=== PATIENT | female | born 1940 | race Caucasian/White ===

== ENCOUNTER → 2016-11-24 | Outpatient (REF) | payer MEDICARE | LOC: M LAB REF 08:54 | PROVIDERS: ATTEND Physician Assistant | DX: N39.0 Urinary tract infection, site not specified (principal) ==

== ENCOUNTER → 2018-05-14 | Outpatient (CLI) | payer MEDICARE | LOC: M ADAMS 11:46 | DX: M51.85 Other intervertebral disc disorders, thoracolumbar region (principal); M51.86 Other intervertebral disc disorders, lumbar region; M51.87 Other intervertebral disc disorders, lumbosacral region; M25.78 Osteophyte, vertebrae; G89.29 Other chronic pain; M54.5 Low back pain | CPT/HCPCS: 72114 ==

== ENCOUNTER 2018-05-18 18:19 | Inpatient (IN) | payer MEDICARE ==
[2018-05-17] MEDS: VERAPAMIL 120 MG SR TAB PO (23:00)
[2018-05-18] MEDS: NS 1,000 ML IV ×2 (18:45→18:50)
[2018-05-18] MEDS: CIPROFLOXACIN 400 MG in APPROPRIATE DILUENT 1 EA IV (18:45)
[2018-05-18] MEDS ORDERED: MORPHINE 2 MG/ML 1ML SYRINGE (J2270) IV (19:00)
[2018-05-18] MEDS: ACETAMINOPHEN TAB 650MG DOSE (2X325MG) PO (19:43)
[2018-05-18 20:44] LABS: LACTIC ACID SEPSIS PROTOCOL 2.1 MMOL/L (0.4-2.0)
[2018-05-18] MEDS: metroNIDAZOLE 500 MG in APPROPRIATE DILUENT 1 EA IV (21:00)
[2018-05-19] MEDS: NS 1,000 ML IV ×2 (01:21→13:15)
[2018-05-19] MEDS: LEVOTHYROXINE 75MCG TABLET (0.075MG) PO (05:59)
[2018-05-19] MEDS: metroNIDAZOLE 500 MG in APPROPRIATE DILUENT 1 EA IV ×3 (05:59→21:01)
[2018-05-19 07:06] LABS: HEMATOCRIT 30.6 % (36.0-47.0); MEAN CORPUSCULAR VOLUME 91.3 fl (80.0-96.0); PLATELET COUNT, AUTOMATED 378 10^3/uL (150-450); RED BLOOD COUNT 3.35 10^6/uL (4.00-5.40); RED CELL DISTRIBUTION WIDTH 14.6 % (11.5-14.5); WHITE BLOOD COUNT 18.9 10^3/uL (4.0-10.0)
[2018-05-19 07:12] LABS: HEMOGLOBIN 10.4 g/dl (12.0-15.5)
[2018-05-19] MEDS: IPRATROPIUM 0.5MG/ALBUTEROL 2.5MG INH SOL UD 3ML (DUONEB)(J7620) NEB ×2 (07:20→22:54)
[2018-05-19 07:40] LABS: ALBUMIN 2.7 GM/DL (3.2-5.2); ALKALINE PHOSPHATASE 47 U/L (45-117); ALT/SGPT 14 U/L (12-78); ANION GAP 9 MEQ/L (8-16); AST/SGOT 9 U/L (7-37); BILIRUBIN,TOTAL 0.5 MG/DL (0.2-1.0); BLOOD UREA NITROGEN 14 MG/DL (7-18); CALCIUM LEVEL 8.3 MG/DL (8.8-10.2); CARBON DIOXIDE LEVEL 24 MEQ/L (21-32); CHLORIDE LEVEL 106 MEQ/L (98-107); CREATININE FOR GFR 0.67 MG/DL (0.55-1.30); GLOMERULAR FILTRATION RATE > 60.0 (>39); GLUCOSE, FASTING 99 MG/DL (70-100); POTASSIUM SERUM 3.8 MEQ/L (3.5-5.1); SODIUM LEVEL 139 MEQ/L (136-145); TOTAL PROTEIN 5.7 GM/DL (6.4-8.2)
[2018-05-19] MEDS: PERCOCET 5MG/325MG TAB PO ×3 (08:17→18:53)
[2018-05-19] MEDS: LISINOPRIL 5 MG TAB PO (08:19)
[2018-05-19] MEDS: PANTOPRAZOLE 40MG TAB (PROTONIX) PO (08:20)
[2018-05-19] MEDS: CIPROFLOXACIN 400 MG in APPROPRIATE DILUENT 1 EA IV ×2 (08:24→21:01)
[2018-05-19] MEDS: DOCUSATE SODIUM 100 MG CAP PO ×2 (08:25→20:20)
[2018-05-19] MEDS ORDERED: hydroCHLOROthiazide 25 MG TAB PO (09:00)
[2018-05-19] MEDS ORDERED: GABAPENTIN 300 MG CAP PO (09:00)
[2018-05-19] MEDS: VERAPAMIL 120 MG SR TAB PO ×2 (11:17→21:02)
[2018-05-19] MEDS: CYANOCOBALAMIN 500 MCG TAB PO (11:18)
[2018-05-19] MEDS: VITAMIN D 1,000 INTERNATIONAL UNITS TABLET PO (11:18)
[2018-05-19] MEDS: VITAMIN E 400 INTERNATIONAL UNITS CAP PO (11:18)
[2018-05-19] MEDS: MULTIVITAMINS/MINERALS THERAP 1 TAB PO (11:18)
[2018-05-19] MEDS: CALCIUM/VITAMIN D 500 MG TAB PO (11:18)
[2018-05-19] MEDS: FLUTICASONE PROP 0.05% NASAL SPRAY 16 GM (FLONASE) NARES (11:19)
[2018-05-19 17:38] LABS: HEMOGLOBIN 10.2 g/dl (12.0-15.5)
[2018-05-19] MEDS: GABAPENTIN 300 MG CAP PO (21:03)
[2018-05-19] MEDS: MONTELUKAST 10 MG TAB PO (21:03)
[2018-05-19] MEDS: PRAVASTATIN 20 MG TAB PO (21:03)
[2018-05-20] MEDS: NS 1,000 ML IV ×3 (02:30→22:39)
[2018-05-20] MEDS: metroNIDAZOLE 500 MG in APPROPRIATE DILUENT 1 EA IV ×3 (05:53→21:45)
[2018-05-20] MEDS: LEVOTHYROXINE 75MCG TABLET (0.075MG) PO (05:53)
[2018-05-20 07:11] LABS: HEMATOCRIT 31.6 % (36.0-47.0); HEMOGLOBIN 10.2 g/dl (12.0-15.5); MEAN CORPUSCULAR HEMOGLOBIN 30.7 pg (27.0-33.0); MEAN CORPUSCULAR HGB CONC 32.3 g/dl (32.0-36.5); MEAN CORPUSCULAR VOLUME 95.2 fl (80.0-96.0); PLATELET COUNT, AUTOMATED 392 10^3/uL (150-450); RED BLOOD COUNT 3.32 10^6/uL (4.00-5.40); RED CELL DISTRIBUTION WIDTH 14.7 % (11.5-14.5); WHITE BLOOD COUNT 15.6 10^3/uL (4.0-10.0)
[2018-05-20 07:38] LABS: ALBUMIN 2.6 GM/DL (3.2-5.2); ALBUMIN/GLOBULIN RATIO 0.87 (1.00-1.93); ALKALINE PHOSPHATASE 51 U/L (45-117); ALT/SGPT 14 U/L (12-78); ANION GAP 8 MEQ/L (8-16); AST/SGOT 10 U/L (7-37); BILIRUBIN,TOTAL 0.4 MG/DL (0.2-1.0); BLOOD UREA NITROGEN 7 MG/DL (7-18); CALCIUM LEVEL 8.2 MG/DL (8.8-10.2); CARBON DIOXIDE LEVEL 24 MEQ/L (21-32); CHLORIDE LEVEL 112 MEQ/L (98-107); CREATININE FOR GFR 0.64 MG/DL (0.55-1.30); GLOMERULAR FILTRATION RATE > 60.0 (>39); GLUCOSE, FASTING 85 MG/DL (70-100); POTASSIUM SERUM 3.9 MEQ/L (3.5-5.1); SODIUM LEVEL 144 MEQ/L (136-145); TOTAL PROTEIN 5.6 GM/DL (6.4-8.2)
[2018-05-20] MEDS: IPRATROPIUM 0.5MG/ALBUTEROL 2.5MG INH SOL UD 3ML (DUONEB)(J7620) NEB (08:24)
[2018-05-20] MEDS: CIPROFLOXACIN 400 MG in APPROPRIATE DILUENT 1 EA IV (08:28)
[2018-05-20] MEDS: PANTOPRAZOLE 40MG TAB (PROTONIX) PO (08:29)
[2018-05-20] MEDS: VERAPAMIL 120 MG SR TAB PO ×2 (08:29→21:46)
[2018-05-20] MEDS: LISINOPRIL 10 MG TAB PO (08:30)
[2018-05-20] MEDS: CALCIUM/VITAMIN D 500 MG TAB PO (08:33)
[2018-05-20] MEDS: DOCUSATE SODIUM 100 MG CAP PO ×2 (08:33→21:46)
[2018-05-20] MEDS: CYANOCOBALAMIN 500 MCG TAB PO (08:34)
[2018-05-20] MEDS: MULTIVITAMINS/MINERALS THERAP 1 TAB PO (08:34)
[2018-05-20] MEDS: FLUTICASONE PROP 0.05% NASAL SPRAY 16 GM (FLONASE) NARES (08:34)
[2018-05-20] MEDS: VITAMIN D 1,000 INTERNATIONAL UNITS TABLET PO (08:34)
[2018-05-20] MEDS: VITAMIN E 400 INTERNATIONAL UNITS CAP PO (08:34)
[2018-05-20] MEDS: LACTOBACILLUS ACIDOPHILUS CAP (BACID) PO ×3 (09:58→21:46)
[2018-05-20] MEDS: CEFEPIME HCL 1 GM in D5W MINI-BAG PLUS 50 ML IV ×2 (11:21→21:45)
[2018-05-20] MEDS: PINK BISMUTH SUSP 524MG/30ML ORAL SYRINGE PO ×3 (12:21→21:45)
[2018-05-20] MEDS: MONTELUKAST 10 MG TAB PO (21:46)
[2018-05-20] MEDS: GABAPENTIN 300 MG CAP PO (21:46)
[2018-05-20] MEDS: PRAVASTATIN 20 MG TAB PO (21:47)
[2018-05-21] MEDS: metroNIDAZOLE 500 MG in APPROPRIATE DILUENT 1 EA IV ×3 (06:00→21:19)
[2018-05-21] MEDS: LEVOTHYROXINE 75MCG TABLET (0.075MG) PO (06:00)
[2018-05-21 06:57] LABS: HEMATOCRIT 31.7 % (36.0-47.0); HEMOGLOBIN 10.5 g/dl (12.0-15.5); MEAN CORPUSCULAR HEMOGLOBIN 30.3 pg (27.0-33.0); MEAN CORPUSCULAR HGB CONC 33.1 g/dl (32.0-36.5); MEAN CORPUSCULAR VOLUME 91.6 fl (80.0-96.0); PLATELET COUNT, AUTOMATED 431 10^3/uL (150-450); RED BLOOD COUNT 3.46 10^6/uL (4.00-5.40); RED CELL DISTRIBUTION WIDTH 14.7 % (11.5-14.5)
[2018-05-21 07:26] LABS: ALBUMIN 2.6 GM/DL (3.2-5.2); ALBUMIN/GLOBULIN RATIO 0.79 (1.00-1.93); ALKALINE PHOSPHATASE 47 U/L (45-117); ALT/SGPT 14 U/L (12-78); ANION GAP 10 MEQ/L (8-16); AST/SGOT 11 U/L (7-37); BILIRUBIN,TOTAL 0.4 MG/DL (0.2-1.0); BLOOD UREA NITROGEN 5 MG/DL (7-18); CALCIUM LEVEL 8.2 MG/DL (8.8-10.2); CARBON DIOXIDE LEVEL 24 MEQ/L (21-32); CHLORIDE LEVEL 110 MEQ/L (98-107); CREATININE FOR GFR 0.71 MG/DL (0.55-1.30); GLOMERULAR FILTRATION RATE > 60.0 (>39); GLUCOSE, FASTING 93 MG/DL (70-100); POTASSIUM SERUM 3.3 MEQ/L (3.5-5.1); SODIUM LEVEL 144 MEQ/L (136-145); TOTAL PROTEIN 5.9 GM/DL (6.4-8.2)
[2018-05-21] MEDS ORDERED: ISOVUE-370 76% 100ML VIAL (Q9967) As Ordered (08:34)
[2018-05-21] MEDS: VERAPAMIL 120 MG SR TAB PO ×2 (08:44→21:18)
[2018-05-21] MEDS: POTASSIUM CHLORIDE 10 MEQ SR TABLET PO ×2 (08:45→09:00)
[2018-05-21] MEDS: VITAMIN D 1,000 INTERNATIONAL UNITS TABLET PO (08:45)
[2018-05-21] MEDS: VITAMIN E 400 INTERNATIONAL UNITS CAP PO (08:45)
[2018-05-21] MEDS: PINK BISMUTH SUSP 524MG/30ML ORAL SYRINGE PO ×4 (08:45→21:18)
[2018-05-21] MEDS: LACTOBACILLUS ACIDOPHILUS CAP (BACID) PO ×3 (08:45→21:17)
[2018-05-21] MEDS: CALCIUM/VITAMIN D 500 MG TAB PO (08:46)
[2018-05-21] MEDS: CYANOCOBALAMIN 500 MCG TAB PO (08:46)
[2018-05-21] MEDS: PANTOPRAZOLE 40MG TAB (PROTONIX) PO (08:46)
[2018-05-21] MEDS: MULTIVITAMINS/MINERALS THERAP 1 TAB PO (08:46)
[2018-05-21] MEDS: FLUTICASONE PROP 0.05% NASAL SPRAY 16 GM (FLONASE) NARES (08:46)
[2018-05-21] MEDS: LISINOPRIL 10 MG TAB PO (08:46)
[2018-05-21] MEDS: DOCUSATE SODIUM 100 MG CAP PO ×2 (08:47→21:19)
[2018-05-21] MEDS: GASTROGRAFIN SOLUTION 30ML PO ×2 (09:15→09:45)
[2018-05-21] MEDS: CEFEPIME HCL 1 GM in D5W MINI-BAG PLUS 50 ML IV ×2 (09:26→22:33)
[2018-05-21] MEDS: NS 1,000 ML IV ×2 (12:57→22:33)
[2018-05-21] MEDS: GABAPENTIN 300 MG CAP PO (21:18)
[2018-05-21] MEDS: MONTELUKAST 10 MG TAB PO (21:19)
[2018-05-21] MEDS: PRAVASTATIN 20 MG TAB PO (21:19)
[2018-05-22] MEDS: LEVOTHYROXINE 75MCG TABLET (0.075MG) PO (05:31)
[2018-05-22] MEDS: metroNIDAZOLE 500 MG in APPROPRIATE DILUENT 1 EA IV ×3 (05:31→21:13)
[2018-05-22 07:12] LABS: HEMATOCRIT 33.9 % (36.0-47.0); HEMOGLOBIN 11.2 g/dl (12.0-15.5); MEAN CORPUSCULAR HEMOGLOBIN 30.6 pg (27.0-33.0); MEAN CORPUSCULAR VOLUME 92.6 fl (80.0-96.0); PLATELET COUNT, AUTOMATED 478 10^3/uL (150-450); RED BLOOD COUNT 3.66 10^6/uL (4.00-5.40); RED CELL DISTRIBUTION WIDTH 14.6 % (11.5-14.5); WHITE BLOOD COUNT 8.6 10^3/uL (4.0-10.0)
[2018-05-22 07:45] LABS: ALBUMIN 2.9 GM/DL (3.2-5.2); ALBUMIN/GLOBULIN RATIO 0.97 (1.00-1.93); ALKALINE PHOSPHATASE 50 U/L (45-117); ALT/SGPT 18 U/L (12-78); ANION GAP 9 MEQ/L (8-16); AST/SGOT 19 U/L (7-37); BILIRUBIN,TOTAL 0.2 MG/DL (0.2-1.0); BLOOD UREA NITROGEN 8 MG/DL (7-18); CALCIUM LEVEL 8.7 MG/DL (8.8-10.2); CARBON DIOXIDE LEVEL 23 MEQ/L (21-32); CHLORIDE LEVEL 110 MEQ/L (98-107); CREATININE FOR GFR 0.62 MG/DL (0.55-1.30); GLOMERULAR FILTRATION RATE > 60.0 (>39); GLUCOSE, FASTING 98 MG/DL (70-100); MAGNESIUM LEVEL 1.4 MG/DL (1.8-2.4); POTASSIUM SERUM 4.2 MEQ/L (3.5-5.1); SODIUM LEVEL 142 MEQ/L (136-145); TOTAL PROTEIN 5.9 GM/DL (6.4-8.2)
[2018-05-22] MEDS: DOCUSATE SODIUM 100 MG CAP PO ×2 (08:21→21:00)
[2018-05-22] MEDS: MULTIVITAMINS/MINERALS THERAP 1 TAB PO (08:24)
[2018-05-22] MEDS: VERAPAMIL 120 MG SR TAB PO ×2 (08:24→21:14)
[2018-05-22] MEDS: PINK BISMUTH SUSP 524MG/30ML ORAL SYRINGE PO ×4 (08:24→21:12)
[2018-05-22] MEDS: LACTOBACILLUS ACIDOPHILUS CAP (BACID) PO ×3 (08:24→21:14)
[2018-05-22] MEDS: CYANOCOBALAMIN 500 MCG TAB PO (08:24)
[2018-05-22] MEDS: VITAMIN E 400 INTERNATIONAL UNITS CAP PO (08:24)
[2018-05-22] MEDS: CALCIUM/VITAMIN D 500 MG TAB PO (08:24)
[2018-05-22] MEDS: VITAMIN D 1,000 INTERNATIONAL UNITS TABLET PO (08:24)
[2018-05-22] MEDS: PANTOPRAZOLE 40MG TAB (PROTONIX) PO (08:24)
[2018-05-22] MEDS: FLUTICASONE PROP 0.05% NASAL SPRAY 16 GM (FLONASE) NARES (08:25)
[2018-05-22] MEDS: LISINOPRIL 10 MG TAB PO (08:25)
[2018-05-22] MEDS: IPRATROPIUM 0.5MG/ALBUTEROL 2.5MG INH SOL UD 3ML (DUONEB)(J7620) NEB (08:50)
[2018-05-22] MEDS: MAG SULF 1GM/100ML (MAG RUN) 1 GM in APPROPRIATE DILUENT 1 EA IV ×2 (08:54→10:54)
[2018-05-22] MEDS: CEFEPIME HCL 1 GM in D5W MINI-BAG PLUS 50 ML IV ×2 (10:17→22:43)
[2018-05-22] MEDS: LOPERAMIDE 2 MG CAP PO (10:55)
[2018-05-22] MEDS: MONTELUKAST 10 MG TAB PO (21:14)
[2018-05-22] MEDS: GABAPENTIN 300 MG CAP PO (21:14)
[2018-05-22] MEDS: PRAVASTATIN 20 MG TAB PO (21:14)
[2018-05-23 00:11] LABS: CHLORIDE FECAL 68 mmol/L (.); OSMOLARITY STOOL 564 mOsmol/kg (Not Estab.); POTASSIUM FECAL 33 mmol/L (.)
[2018-05-23 00:11] LABS: SODIUM FECAL 66 mmol/L (.)
[2018-05-23] MEDS: metroNIDAZOLE 500 MG in APPROPRIATE DILUENT 1 EA IV (05:28)
[2018-05-23] MEDS: LEVOTHYROXINE 75MCG TABLET (0.075MG) PO (05:28)
[2018-05-23 06:44] LABS: HEMATOCRIT 30.7 % (36.0-47.0); HEMOGLOBIN 10.3 g/dl (12.0-15.5); MEAN CORPUSCULAR HEMOGLOBIN 30.3 pg (27.0-33.0); MEAN CORPUSCULAR HGB CONC 33.6 g/dl (32.0-36.5); MEAN CORPUSCULAR VOLUME 90.3 fl (80.0-96.0); PLATELET COUNT, AUTOMATED 425 10^3/uL (150-450); RED CELL DISTRIBUTION WIDTH 14.6 % (11.5-14.5); WHITE BLOOD COUNT 7.4 10^3/uL (4.0-10.0)
[2018-05-23 07:09] LABS: ALBUMIN 2.6 GM/DL (3.2-5.2); ALBUMIN/GLOBULIN RATIO 0.84 (1.00-1.93); ALKALINE PHOSPHATASE 42 U/L (45-117); ALT/SGPT 18 U/L (12-78); ANION GAP 8 MEQ/L (8-16); AST/SGOT 21 U/L (7-37); BILIRUBIN,TOTAL 0.3 MG/DL (0.2-1.0); BLOOD UREA NITROGEN 8 MG/DL (7-18); CALCIUM LEVEL 8.5 MG/DL (8.8-10.2); CARBON DIOXIDE LEVEL 27 MEQ/L (21-32); CHLORIDE LEVEL 110 MEQ/L (98-107); CREATININE FOR GFR 0.68 MG/DL (0.55-1.30); GLOMERULAR FILTRATION RATE > 60.0 (>39); GLUCOSE, FASTING 97 MG/DL (70-100); POTASSIUM SERUM 3.6 MEQ/L (3.5-5.1); SODIUM LEVEL 145 MEQ/L (136-145); TOTAL PROTEIN 5.7 GM/DL (6.4-8.2)
[2018-05-23] MEDS: DOCUSATE SODIUM 100 MG CAP PO (09:00)
[2018-05-23] MEDS: CALCIUM/VITAMIN D 500 MG TAB PO (09:01)
[2018-05-23] MEDS: CYANOCOBALAMIN 500 MCG TAB PO (09:01)
[2018-05-23] MEDS: VITAMIN E 400 INTERNATIONAL UNITS CAP PO (09:01)
[2018-05-23] MEDS: MULTIVITAMINS/MINERALS THERAP 1 TAB PO (09:01)
[2018-05-23] MEDS: PINK BISMUTH SUSP 524MG/30ML ORAL SYRINGE PO (09:01)
[2018-05-23] MEDS: VITAMIN D 1,000 INTERNATIONAL UNITS TABLET PO (09:02)
[2018-05-23] MEDS: LISINOPRIL 10 MG TAB PO (09:02)
[2018-05-23] MEDS: PANTOPRAZOLE 40MG TAB (PROTONIX) PO (09:02)
[2018-05-23] MEDS: LACTOBACILLUS ACIDOPHILUS CAP (BACID) PO (09:02)
[2018-05-23] MEDS: POTASSIUM CHLORIDE 10 MEQ SR TABLET PO (09:02)
[2018-05-23] MEDS: CEFEPIME HCL 1 GM in D5W MINI-BAG PLUS 50 ML IV (09:03)
[2018-05-23] MEDS: FLUTICASONE PROP 0.05% NASAL SPRAY 16 GM (FLONASE) NARES (09:03)
[2018-05-23] MEDS: VERAPAMIL 120 MG SR TAB PO (09:03)
== END 2018-05-23 10:52 | disposition home or self-care (01) | DRG 392 ==
LOC: M ED 18:19 → M PED 21:03
PROVIDERS: Internal Medicine Nephrology
DX: K52.9 Noninfective gastroenteritis and colitis, unspecified (principal); E87.2 Acidosis; E78.5 Hyperlipidemia, unspecified; I10 Essential (primary) hypertension; J45.909 Unspecified asthma, uncomplicated; D86.9 Sarcoidosis, unspecified; E03.9 Hypothyroidism, unspecified; Z79.82 Long term (current) use of aspirin; Z79.899 Other long term (current) drug therapy

== ENCOUNTER → 2018-05-18 | Outpatient (CLI) | payer MEDICARE ==
[~2018-05-18] MED LIST: GASTROGRAFIN SOLUTION 30ML (Q9963) As Ordered; ISOVUE-370 76% 100ML VIAL (Q9967) As Ordered
[2018-05-18 16:16] LABS: BASO % 0.2 % (0.0-1.0); HEMOGLOBIN 12.5 g/dl (12.0-15.5); IMMATURE GRANULOCYTE % 0.7 % (0-3.0); LYMPH # 0.8 10^3/uL (1.5-4.5); LYMPH % 3.8 % (24.0-44.0); MEAN CORPUSCULAR HEMOGLOBIN 30.9 pg (27.0-33.0); MEAN CORPUSCULAR HGB CONC 32.9 g/dl (32.0-36.5); MEAN CORPUSCULAR VOLUME 93.8 fl (80.0-96.0); MONO # 1.3 10^3/uL (0.0-0.8); MONO % 6.8 % (0.0-5.0); NEUTROPHILS # 17.5 10^3/uL (1.8-7.7); NEUTROPHILS % 88.5 % (36.0-66.0); PLATELET COUNT, AUTOMATED 471 10^3/uL (150-450); RED BLOOD COUNT 4.05 10^6/uL (4.00-5.40); RED CELL DISTRIBUTION WIDTH 14.5 % (11.5-14.5); WHITE BLOOD COUNT 19.8 10^3/uL (4.0-10.0)
[2018-05-18 16:38] LABS: ALBUMIN 3.5 GM/DL (3.2-5.2); ALBUMIN/GLOBULIN RATIO 1.03 (1.00-1.93); ALKALINE PHOSPHATASE 58 U/L (45-117); ALT/SGPT 21 U/L (12-78); ANION GAP 8 MEQ/L (8-16); AST/SGOT 16 U/L (7-37); BILIRUBIN,TOTAL 0.6 MG/DL (0.2-1.0); BLOOD UREA NITROGEN 26 MG/DL (7-18); CALCIUM LEVEL 9.5 MG/DL (8.8-10.2); CARBON DIOXIDE LEVEL 27 MEQ/L (21-32); CHLORIDE LEVEL 104 MEQ/L (98-107); CREATININE FOR GFR 0.91 MG/DL (0.55-1.30); GLOMERULAR FILTRATION RATE > 60.0 (>39); GLUCOSE, FASTING 96 MG/DL (70-100); LIPASE 156 U/L (73-393); POTASSIUM SERUM 4.7 MEQ/L (3.5-5.1); SODIUM LEVEL 139 MEQ/L (136-145); TOTAL PROTEIN 6.9 GM/DL (6.4-8.2)
== END ==
LOC: M RAD 15:34
DX: K52.9 Noninfective gastroenteritis and colitis, unspecified (principal); K57.30 Diverticulosis of large intestine without perforation or abscess without bleeding; M85.88 Other specified disorders of bone density and structure, other site; R10.813 Right lower quadrant abdominal tenderness

== ENCOUNTER → 2018-06-02 | Outpatient (REF) | payer MEDICARE ==
[2018-06-02 19:58] LABS: ALBUMIN/GLOBULIN RATIO 1.14 (1.00-1.93); ALKALINE PHOSPHATASE 52 U/L (45-117); ALT/SGPT 32 U/L (12-78); ANION GAP 6 MEQ/L (8-16); AST/SGOT 26 U/L (7-37); BILIRUBIN,TOTAL 0.3 MG/DL (0.2-1.0); BLOOD UREA NITROGEN 20 MG/DL (7-18); CALCIUM LEVEL 10.1 MG/DL (8.8-10.2); CARBON DIOXIDE LEVEL 30 MEQ/L (21-32); CHLORIDE LEVEL 99 MEQ/L (98-107); CREATININE FOR GFR 0.83 MG/DL (0.55-1.30); GLOMERULAR FILTRATION RATE > 60.0 (>39); GLUCOSE, FASTING 86 MG/DL (70-100); POTASSIUM SERUM 5.4 MEQ/L (3.5-5.1); SODIUM LEVEL 135 MEQ/L (136-145); TOTAL PROTEIN 7.5 GM/DL (6.4-8.2)
[2018-06-02 20:04] LABS: HEMATOCRIT 37.7 % (36.0-47.0); HEMOGLOBIN 12.1 g/dl (12.0-15.5); MEAN CORPUSCULAR HEMOGLOBIN 29.8 pg (27.0-33.0); MEAN CORPUSCULAR HGB CONC 32.1 g/dl (32.0-36.5); MEAN CORPUSCULAR VOLUME 92.9 fl (80.0-96.0); PLATELET COUNT, AUTOMATED 750 10^3/uL (150-450); RED BLOOD COUNT 4.06 10^6/uL (4.00-5.40); RED CELL DISTRIBUTION WIDTH 14.7 % (11.5-14.5); WHITE BLOOD COUNT 9.9 10^3/uL (4.0-10.0)
== END ==
LOC: M SFHCADAM 14:27
DX: D64.9 Anemia, unspecified (principal)
CPT/HCPCS: 80053

== ENCOUNTER → 2018-11-13 | Outpatient (REF) | payer MEDICARE ==
[~2018-11-13] MED LIST changes: +ACID1CAP PO; +ASPI1TAB15 PO; +AUGM875T28 PO; +CALC600T7 PO; +DEXI30CA2 PO; +DICL75TA PO; +DOCU100C16 PO; +FLAG500T PO; +FLAX10005 PO; +FLUT44IN INH; +FLUTISP NARES; +GABA-843 PO; -GASTROGRAFIN SOLUTION 30ML (Q9963) As Ordered; +GINK40TA3 PO; +GLUC1CAP10 PO; +HYDR25TAB PO; -ISOVUE-370 76% 100ML VIAL (Q9967) As Ordered; +LEVO75TA4 PO; +LISI-542 PO; +LOPE2CA PO; +MELO15TA28 PO; +MIRA3350 PO; +MONT10TA2 PO; +PRAV80TA2 PO; +REST0.05 OU; +VERA24TASA PO; +VITA100018 PO; +VITA2000 PO; +VITA400C67 PO; +VITMTA PO
[2018-11-13 12:51] LABS: HEMATOCRIT 37.9 % (36.0-47.0); HEMOGLOBIN 12.3 g/dl (12.0-15.5); MEAN CORPUSCULAR HEMOGLOBIN 30.4 pg (27.0-33.0); MEAN CORPUSCULAR HGB CONC 32.5 g/dl (32.0-36.5); MEAN CORPUSCULAR VOLUME 93.6 fl (80.0-96.0); PLATELET COUNT, AUTOMATED 600 10^3/uL (150-450); RED BLOOD COUNT 4.05 10^6/uL (4.00-5.40); WHITE BLOOD COUNT 7.6 10^3/uL (4.0-10.0)
[2018-11-13 13:04] LABS: ALBUMIN 3.7 GM/DL (3.2-5.2); BILIRUBIN,TOTAL 0.4 MG/DL (0.2-1.0); CALCIUM LEVEL 10.3 MG/DL (8.8-10.2); CHOLESTEROL RISK RATIO 2.723 (<5); CREATININE FOR GFR 0.97 MG/DL (0.55-1.30); FREE T4 1.29 NG/DL (0.76-1.46); GLOMERULAR FILTRATION RATE 59.3 (>39); POTASSIUM SERUM 5.2 MEQ/L (3.5-5.1); THYROID STIMULATING HORMONE 1.09 uIU/ML (0.358-3.740); TOTAL PROTEIN 6.8 GM/DL (6.4-8.2)
== END ==
LOC: M SFHCADAM 07:55
PROVIDERS: ATTEND Physician Assistant
DX: I10 Essential (primary) hypertension (principal); E78.5 Hyperlipidemia, unspecified; E03.9 Hypothyroidism, unspecified

== ENCOUNTER → 2019-01-26 | Outpatient (REF) | payer MEDICARE ==
[2019-01-26 13:27] LABS: HEMATOCRIT 27.2 % (36.0-47.0); HEMOGLOBIN 8.5 g/dl (12.0-15.5); MEAN CORPUSCULAR HEMOGLOBIN 27.6 pg (27.0-33.0); MEAN CORPUSCULAR HGB CONC 31.3 g/dl (32.0-36.5); MEAN CORPUSCULAR VOLUME 88.3 fl (80.0-96.0); PLATELET COUNT, AUTOMATED 605 10^3/uL (150-450); RED BLOOD COUNT 3.08 10^6/uL (4.00-5.40); WHITE BLOOD COUNT 7.8 10^3/uL (4.0-10.0)
[2019-01-26 13:57] LABS: ALBUMIN 2.9 GM/DL (3.2-5.2); ALT/SGPT 25 U/L (12-78); BILIRUBIN,TOTAL 0.2 MG/DL (0.2-1.0); BLOOD UREA NITROGEN 34 MG/DL (7-18); CALCIUM LEVEL 9.7 MG/DL (8.8-10.2); CARBON DIOXIDE LEVEL 25 MEQ/L (21-32); CHLORIDE LEVEL 108 MEQ/L (98-107); GLOMERULAR FILTRATION RATE > 60.0 (>39); GLUCOSE, FASTING 77 MG/DL (70-100); SODIUM LEVEL 140 MEQ/L (136-145); TOTAL PROTEIN 6.5 GM/DL (6.4-8.2)
== END ==
LOC: M LAB REF 12:20 → M LABDRAW1 12:20
PROVIDERS: ATTEND Physician Assistant
DX: I10 Essential (primary) hypertension (principal); E78.5 Hyperlipidemia, unspecified; E03.9 Hypothyroidism, unspecified

== ENCOUNTER → 2019-02-01 | Outpatient (REF) | payer MEDICARE ==
[2019-02-01 14:48] LABS: BASO # 0.1 10^3/uL (0.0-0.2); BASO % 1.2 % (0.0-1.0); EOS # 0.4 10^3/uL (0.0-0.50); EOS % 4.4 % (0.0-3.0); HEMATOCRIT 27.9 % (36.0-47.0); HEMOGLOBIN 8.9 g/dl (12.0-15.5); LYMPH # 1.3 10^3/uL (1.5-4.5); LYMPH % 14.1 % (24.0-44.0); MEAN CORPUSCULAR HEMOGLOBIN 28.3 pg (27.0-33.0); MEAN CORPUSCULAR HGB CONC 31.9 g/dl (32.0-36.5); MEAN CORPUSCULAR VOLUME 88.6 fl (80.0-96.0); MONO # 1.1 10^3/uL (0.0-0.8); MONO % 12.7 % (0.0-5.0); NEUTROPHILS # 6.1 10^3/uL (1.8-7.7); NEUTROPHILS % 67.3 % (36.0-66.0); PLATELET COUNT, AUTOMATED 506 10^3/uL (150-450); RED BLOOD COUNT 3.15 10^6/uL (4.00-5.40)
[2019-02-01 15:11] LABS: ALBUMIN 3.1 GM/DL (3.2-5.2); ALT/SGPT 17 U/L (12-78); BILIRUBIN,TOTAL 0.3 MG/DL (0.2-1.0); BLOOD UREA NITROGEN 35 MG/DL (7-18); C REACTIVE PROTEIN QUANTITATIV < 0.30 MG/DL (0.00-0.30); CALCIUM LEVEL 9.7 MG/DL (8.8-10.2); CARBON DIOXIDE LEVEL 26 MEQ/L (21-32); CHLORIDE LEVEL 105 MEQ/L (98-107); CREATININE FOR GFR 0.95 MG/DL (0.55-1.30); GLOMERULAR FILTRATION RATE > 60.0 (>39); GLUCOSE, FASTING 74 MG/DL (70-100); POTASSIUM SERUM 5.1 MEQ/L (3.5-5.1); SODIUM LEVEL 137 MEQ/L (136-145); TOTAL PROTEIN 6.6 GM/DL (6.4-8.2)
== END ==
LOC: M LAB REF 14:15
DX: T81.49XA Infection following a procedure, other surgical site, initial encounter (principal); Z79.899 Other long term (current) drug therapy

== ENCOUNTER → 2019-02-03 | Outpatient (REF) | payer MEDICARE ==
[2019-02-03 20:12] LABS: BASO # 0.1 10^3/uL (0.0-0.2); BASO % 1.5 % (0.0-1.0); EOS # 0.6 10^3/uL (0.0-0.50); EOS % 7.1 % (0.0-3.0); HEMOGLOBIN 8.9 g/dl (12.0-15.5); LYMPH # 1.3 10^3/uL (1.5-4.5); LYMPH % 15.9 % (24.0-44.0); MEAN CORPUSCULAR HEMOGLOBIN 27.6 pg (27.0-33.0); MEAN CORPUSCULAR HGB CONC 30.7 g/dl (32.0-36.5); MEAN CORPUSCULAR VOLUME 90.1 fl (80.0-96.0); MONO # 1.3 10^3/uL (0.0-0.8); MONO % 16.1 % (0.0-5.0); NEUTROPHILS # 4.7 10^3/uL (1.8-7.7); PLATELET COUNT, AUTOMATED 486 10^3/uL (150-450); RED BLOOD COUNT 3.22 10^6/uL (4.00-5.40); WHITE BLOOD COUNT 7.9 10^3/uL (4.0-10.0)
[2019-02-03 20:41] LABS: FERRITIN 23 NG/ML (8-252); FREE T4 1.05 NG/DL (0.76-1.46); IRON (FE) 40 UG/DL (50-170); PERCENT SATURATION 9.1 % (13.2-45.0); TOTAL IRON BINDING CAPACITY 439 UG/DL (250-450)
[2019-02-03 20:42] LABS: VITAMIN B12 LEVEL 1406 PG/ML
[2019-02-03 20:43] LABS: FOLATE > 24.0 NG/ML
== END ==
LOC: M SFHCADAM 14:29
PROVIDERS: ATTEND Physician Assistant
DX: D64.9 Anemia, unspecified (principal); D47.3 Essential (hemorrhagic) thrombocythemia

== ENCOUNTER → 2019-02-08 | Outpatient (REF) | payer MEDICARE ==
[2019-02-08 18:03] LABS: BASO # 0.1 10^3/uL (0.0-0.2); BASO % 1.1 % (0.0-1.0); EOS # 0.5 10^3/uL (0.0-0.50); EOS % 5.8 % (0.0-3.0); HEMATOCRIT 27.9 % (36.0-47.0); HEMOGLOBIN 8.5 g/dl (12.0-15.5); LYMPH % 10.5 % (24.0-44.0); MEAN CORPUSCULAR HGB CONC 30.5 g/dl (32.0-36.5); MEAN CORPUSCULAR VOLUME 88.6 fl (80.0-96.0); MONO % 10.9 % (0.0-5.0); NEUTROPHILS # 6.5 10^3/uL (1.8-7.7); NEUTROPHILS % 71.3 % (36.0-66.0); PLATELET COUNT, AUTOMATED 467 10^3/uL (150-450); RED BLOOD COUNT 3.15 10^6/uL (4.00-5.40); WHITE BLOOD COUNT 9.1 10^3/uL (4.0-10.0)
[2019-02-08 18:04] LABS: ALT/SGPT 16 U/L (12-78); BILIRUBIN,TOTAL 0.3 MG/DL (0.2-1.0); BLOOD UREA NITROGEN 34 MG/DL (7-18); C REACTIVE PROTEIN QUANTITATIV < 0.30 MG/DL (0.00-0.30); CALCIUM LEVEL 9.9 MG/DL (8.8-10.2); CARBON DIOXIDE LEVEL 27 MEQ/L (21-32); CHLORIDE LEVEL 107 MEQ/L (98-107); CREATININE FOR GFR 1.17 MG/DL (0.55-1.30); GLOMERULAR FILTRATION RATE 47.7 (>39); GLUCOSE, FASTING 88 MG/DL (70-100); POTASSIUM SERUM 5.2 MEQ/L (3.5-5.1); SODIUM LEVEL 138 MEQ/L (136-145); TOTAL PROTEIN 6.6 GM/DL (6.4-8.2)
== END ==
LOC: M SHH 16:41
PROVIDERS: ATTEND Orthopaedic Surgery Orthopaedic Trauma
DX: T81.49XA Infection following a procedure, other surgical site, initial encounter (principal); Y83.9 Surgical procedure, unspecified as the cause of abnormal reaction of the patient, or of later complication, without mention of misadventure at the time of the procedure

== ENCOUNTER → 2019-02-16 | Outpatient (REF) | payer MEDICARE ==
[2019-02-16 14:22] LABS: BASO # 0.1 10^3/uL (0.0-0.2); BASO % 1.1 % (0.0-1.0); EOS # 0.3 10^3/uL (0.0-0.5); EOS % 4.5 % (0.0-3.0); HEMATOCRIT 29.4 % (36.0-47.0); HEMOGLOBIN 9.2 g/dl (12.0-15.5); LYMPH # 1.3 10^3/uL (1.5-5.0); LYMPH % 18.8 % (24.0-44.0); MEAN CORPUSCULAR HEMOGLOBIN 27.1 pg (27.0-33.0); MEAN CORPUSCULAR HGB CONC 31.3 g/dl (32.0-36.5); MEAN CORPUSCULAR VOLUME 86.7 fl (80.0-96.0); MONO # 1.1 10^3/uL (0.0-0.8); MONO % 14.9 % (0.0-5.0); NEUTROPHILS # 4.2 10^3/uL (1.5-8.5); NEUTROPHILS % 60.3 % (36.0-66.0); PLATELET COUNT, AUTOMATED 545 10^3/uL (150-450); RED BLOOD COUNT 3.39 10^6/uL (4.00-5.40)
[2019-02-16 14:53] LABS: ALBUMIN 3.2 GM/DL (3.2-5.2); BILIRUBIN,TOTAL 0.3 MG/DL (0.2-1.0); C REACTIVE PROTEIN QUANTITATIV 0.76 MG/DL (0.00-0.30); CALCIUM LEVEL 10.2 MG/DL (8.8-10.2); CREATININE FOR GFR 1.41 MG/DL (0.55-1.30); GLOMERULAR FILTRATION RATE 38.5 (>39); POTASSIUM SERUM 5.1 MEQ/L (3.5-5.1); TOTAL PROTEIN 7.1 GM/DL (6.4-8.2)
== END ==
LOC: M SHH 13:22
PROVIDERS: ATTEND Orthopaedic Surgery Orthopaedic Trauma
DX: T81.49XA Infection following a procedure, other surgical site, initial encounter (principal); Y83.8 Other surgical procedures as the cause of abnormal reaction of the patient, or of later complication, without mention of misadventure at the time of the procedure

== ENCOUNTER → 2019-02-18 | Outpatient (REF) | payer MEDICARE ==
[2019-02-18 13:39] LABS: C REACTIVE PROTEIN QUANTITATIV 0.57 MG/DL (0.00-0.30); CALCIUM LEVEL 9.9 MG/DL (8.8-10.2); CREATININE FOR GFR 1.21 MG/DL (0.55-1.30); GLOMERULAR FILTRATION RATE 45.9 (>39)
== END ==
LOC: M LABDRWAD 12:24
PROVIDERS: ATTEND Internal Medicine Infectious Disease
DX: T81.49XA Infection following a procedure, other surgical site, initial encounter (principal); A49.8 Other bacterial infections of unspecified site; Y83.8 Other surgical procedures as the cause of abnormal reaction of the patient, or of later complication, without mention of misadventure at the time of the procedure

== ENCOUNTER → 2019-04-05 | Outpatient (REF) | payer MEDICARE ==
[2019-04-05 13:35] LABS: HEMATOCRIT 37.6 % (36.0-47.0); HEMOGLOBIN 11.7 g/dl (12.0-15.5); MEAN CORPUSCULAR HEMOGLOBIN 27.5 pg (27.0-33.0); MEAN CORPUSCULAR HGB CONC 31.1 g/dl (32.0-36.5); MEAN CORPUSCULAR VOLUME 88.5 fl (80.0-96.0); PLATELET COUNT, AUTOMATED 570 10^3/uL (150-450); RED BLOOD COUNT 4.25 10^6/uL (4.00-5.40); WHITE BLOOD COUNT 5.7 10^3/uL (4.0-10.0)
[2019-04-05 13:41] LABS: ALBUMIN 3.5 GM/DL (3.2-5.2); ALT/SGPT 20 U/L (12-78); BILIRUBIN,TOTAL 0.4 MG/DL (0.2-1.0); BLOOD UREA NITROGEN 21 MG/DL (7-18); CALCIUM LEVEL 10.1 MG/DL (8.8-10.2); CARBON DIOXIDE LEVEL 31 MEQ/L (21-32); CHLORIDE LEVEL 104 MEQ/L (98-107); CREATININE FOR GFR 0.89 MG/DL (0.55-1.30); GLOMERULAR FILTRATION RATE > 60.0 (>39); GLUCOSE, FASTING 82 MG/DL (70-100); POTASSIUM SERUM 4.5 MEQ/L (3.5-5.1); SODIUM LEVEL 139 MEQ/L (136-145); TOTAL PROTEIN 7.3 GM/DL (6.4-8.2)
== END ==
LOC: M SFHCADAM 09:25
PROVIDERS: ATTEND Physician Assistant
DX: I10 Essential (primary) hypertension (principal); E78.5 Hyperlipidemia, unspecified; E03.9 Hypothyroidism, unspecified

== ENCOUNTER 2019-05-07 10:28 | Day surgery (SDC) | payer MEDICARE ==
[~2019-05-07] VITALS: Ht 147.3 cm; Wt 64.0 kg
[~2019-05-07 10:28] MED LIST changes: +NS 1,000 ML IV ONE
[2019-05-07] MEDS ORDERED: PROPOFOL 200 MG/20 ML VIAL As Ordered ONE (12:00)
[2019-05-07] MEDS ORDERED: LIDOCAINE 2% INJ 100 MG/5 ML SDV (FOR ANES.) As Ordered ONE (12:00)
[2019-05-07] MEDS ORDERED: LABETALOL HCL 100 MG/20 ML VIAL As Ordered ONE (12:11)
--- NOTE | 2019-05-07 12:57 | ROOR ---
Patient Name: Lorena Cherry Procedure Date: 05/07/2019 11:35 AM Date of : 1940 Age: 78 Room: [facility] Gender: Female Note Status: Finalized Procedure: Upper GI endoscopy Indications: Suspected gastro-esophageal reflux disease Providers: Rubin Laboy MD Referring MD: YARIEL Anderson Requesting Provider: Medicines: Monitored Anesthesia Care Complications: No immediate complications. Procedure: Pre-Anesthesia Assessment: - Prior to the procedure, a History and Physical was performed, and patient medications and allergies were reviewed. The patient is competent. The risks and benefits of the procedure and the sedation options and risks were discussed with the patient. All questions were answered and informed consent was obtained. Patient identification and proposed procedure were verified by the physician, the nurse and the anesthesiologist in the procedure room. Mental Status Examination: alert and oriented. Airway Examination: normal oropharyngeal airway and neck mobility. Respiratory Examination: clear to auscultation. CV Examination: normal. Prophylactic Antibiotics: The patient does not require prophylactic antibiotics. Prior Anticoagulants: The patient has taken no previous anticoagulant or antiplatelet agents. ASA Grade Assessment: II - A patient with mild systemic disease. After reviewing the risks and benefits, the patient was deemed in satisfactory condition to undergo the procedure. The anesthesia plan was to use monitored anesthesia care (MAC). Immediately prior to administration of medications, the patient was re-assessed for adequacy to receive sedatives. The heart rate, respiratory rate, oxygen saturations, blood pressure, adequacy of pulmonary ventilation, and response to care were monitored throughout the procedure. The physical status of the patient was re-assessed after the procedure. The upper GI endoscopy was accomplished without difficulty. The patient tolerated the procedure well. The Endoscope was introduced through the mouth, and advanced to the second part of duodenum. Findings: LA Grade C (one or more mucosal breaks continuous between tops of 2 or more mucosal folds, less than 75% circumference) esophagitis with no bleeding was found in the distal esophagus. Biopsies were taken with a cold forceps for histology. Verification of patient identification for the specimen was done by the physician and nurse using the patient's name, date and medical record number. Estimated blood loss was minimal. A medium-sized hiatal hernia was present. Scattered moderate inflammation characterized by congestion (edema), erythema, friability and granularity was found in the gastric antrum. Biopsies were taken with a cold forceps for Helicobacter pylori testing. The duodenal bulb and second portion of the duodenum were normal. Biopsies for histology were taken with a cold forceps for evaluation of celiac disease. Impression: - LA Grade C reflux esophagitis. Rule out Odom's esophagus. Biopsied. - Medium-sized hiatal hernia. - Gastritis. Biopsied. - Normal duodenal bulb and second portion of the duodenum. Biopsied. Recommendation: - Patient has a contact number available for emergencies. The signs and symptoms of potential delayed complications were discussed with the patient. Return to normal activities tomorrow. Written discharge instructions were provided to the patient. - Resume previous diet. - Continue present medications. - Use Dexilant (dexlansoprazole) 30 mg PO BID for 3 months. - Follow an antireflux regimen. - Await pathology results. - Repeat upper endoscopy in 3 months depending on the symptoms and clinical response. - Return to GI clinic in [facility] (address [address], [address], [place] [address]) in 4 -- 6 weeks. Please call GI clinic @ [phone] for apppointment date and time. - Return to primary care physician. Rubin Laboy MD Rubin Laboy MD 05/07/2019 12:57:22 PM Electronically signed by Rubin Laboy MD Number of Addenda: 0 Note Initiated On: 05/07/2019 11:03 AM Estimated Blood Loss: Estimated blood loss was minimal.
--- NOTE | 2019-05-07 13:06 | ROOR ---
Patient Name: Lorena Cherry Procedure Date: 05/07/2019 11:35 AM Date of : 1940 Age: 78 Room: [facility] Gender: Female Note Status: Finalized Procedure: Colonoscopy Indications: Iron deficiency anemia, Abnormal CT of the GI tract Providers: Rubin Laboy MD Referring MD: YARIEL Anderson Requesting Provider: Medicines: Monitored Anesthesia Care Complications: No immediate complications. Procedure: Pre-Anesthesia Assessment: - Prior to the procedure, a History and Physical was performed, and patient medications and allergies were reviewed. The patient is competent. The risks and benefits of the procedure and the sedation options and risks were discussed with the patient. All questions were answered and informed consent was obtained. Patient identification and proposed procedure were verified by the physician, the nurse and the anesthesiologist in the procedure room. Mental Status Examination: alert and oriented. Airway Examination: normal oropharyngeal airway and neck mobility. Respiratory Examination: clear to auscultation. CV Examination: normal. Prophylactic Antibiotics: The patient does not require prophylactic antibiotics. Prior Anticoagulants: The patient has taken no previous anticoagulant or antiplatelet agents. ASA Grade Assessment: II - A patient with mild systemic disease. After reviewing the risks and benefits, the patient was deemed in satisfactory condition to undergo the procedure. The anesthesia plan was to use monitored anesthesia care (MAC). Immediately prior to administration of medications, the patient was re-assessed for adequacy to receive sedatives. The heart rate, respiratory rate, oxygen saturations, blood pressure, adequacy of pulmonary ventilation, and response to care were monitored throughout the procedure. The physical status of the patient was re-assessed after the procedure. The colonoscopy was performed without difficulty. The patient tolerated the procedure well. The quality of the bowel preparation was good. The terminal ileum, ileocecal valve, appendiceal orifice, and rectum were photographed. Scope insertion time was 3 minutes. Scope withdrawal time was 9 minutes. The total duration of the procedure was 12 minutes. The Colonoscope was introduced through the anus and advanced to the terminal ileum, with identification of the appendiceal orifice and IC valve. Findings: The perianal and digital rectal examinations were normal. The terminal ileum appeared normal. Three sessile polyps were found in the transverse colon. The polyps were 4 to 6 mm in size. These polyps were removed with a cold snare. Resection and retrieval were complete. Verification of patient identification for the specimen was done by the physician and nurse using the patient's name, date and medical record number. Estimated blood loss was minimal. Two sessile polyps were found in the recto-sigmoid colon. The polyps were 3 to 4 mm in size. These polyps were removed with a cold biopsy forceps. Resection and retrieval were complete. Multiple small and large-mouthed diverticula were found from sigmoid to transverse colon. There was narrowing of the colon in association with the diverticular opening. Meagan-diverticular erythema was seen. There was no evidence of diverticular bleeding. Non-bleeding external and internal hemorrhoids were found during retroflexion. The hemorrhoids were small. Impression: - The examined portion of the ileum was normal. - Three 4 to 6 mm polyps in the transverse colon, removed with a cold snare. Resected and retrieved. - Two 3 to 4 mm polyps at the recto-sigmoid colon, removed with a cold biopsy forceps. Resected and retrieved. - Severe diverticulosis from sigmoid to transverse colon. There was narrowing of the colon in association with the diverticular opening. Meagan-diverticular erythema was seen. There was no evidence of diverticular bleeding. - Non-bleeding external and internal hemorrhoids. Recommendation: - Patient has a contact number available for emergencies. The signs and symptoms of potential delayed complications were discussed with the patient. Return to normal activities tomorrow. Written discharge instructions were provided to the patient. - High fiber diet. - Continue present medications. - Use fiber, for example Citrucel, Fibercon, Konsyl or Metamucil. - Await pathology results. - Repeat colonoscopy in 3 - 5 years for surveillance based on pathology results and depending on clinical and functional status. - Return to GI clinic in [facility] (address [address], [address], [place], [facility]) in 4 -- 6 weeks. Please call GI clinic @ [phone] for apppointment date and time. - Check hemogram and iron studies ( Iron, transferrin and Ferritin) in 3 months. - Return to primary care physician. Rubin Laboy MD Rubin Laboy MD 05/07/2019 1:06:07 PM Electronically signed by Rubin Laboy MD Number of Addenda: 0 Note Initiated On: 05/07/2019 11:05 AM Estimated Blood Loss: Estimated blood loss was minimal.
[2019-05-07 13:15] VITALS: BP 169/79
== END 2019-05-07 14:00 | disposition home or self-care (01) ==
LOC: M OPP 10:28
PROVIDERS: ATTEND Internal Medicine Gastroenterology
DX: K64.8 Other hemorrhoids (principal); D12.3 Benign neoplasm of transverse colon; D12.7 Benign neoplasm of rectosigmoid junction; D50.9 Iron deficiency anemia, unspecified; K57.30 Diverticulosis of large intestine without perforation or abscess without bleeding; R93.3 Abnormal findings on diagnostic imaging of other parts of digestive tract; K21.0 Gastro-esophageal reflux disease with esophagitis; K44.9 Diaphragmatic hernia without obstruction or gangrene; K29.70 Gastritis, unspecified, without bleeding; Z79.899 Other long term (current) drug therapy; Z79.82 Long term (current) use of aspirin

== ENCOUNTER → 2019-10-25 | Outpatient (REF) | payer MEDICARE ==
[~2019-10-25] MED LIST changes: -MONT10TA2 PO; +MONT10TA4 PO; -NS 1,000 ML IV ONE
[2019-10-25 12:58] LABS: HEMATOCRIT 40.7 % (36.0-47.0); HEMOGLOBIN 12.8 g/dl (12.0-15.5); MEAN CORPUSCULAR HEMOGLOBIN 29.6 pg (27.0-33.0); MEAN CORPUSCULAR HGB CONC 31.4 g/dl (32.0-36.5); MEAN CORPUSCULAR VOLUME 94.2 fl (80.0-96.0); PLATELET COUNT, AUTOMATED 497 10^3/uL (150-450); RED BLOOD COUNT 4.32 10^6/uL (4.00-5.40); WHITE BLOOD COUNT 6.6 10^3/uL (4.0-10.0)
[2019-10-25 13:13] LABS: ALBUMIN 3.6 GM/DL (3.2-5.2); ALT/SGPT 28 U/L (12-78); BILIRUBIN,TOTAL 0.4 MG/DL (0.2-1.0); BLOOD UREA NITROGEN 29 MG/DL (7-18); CALCIUM LEVEL 10.1 MG/DL (8.8-10.2); CARBON DIOXIDE LEVEL 28 MEQ/L (21-32); CHLORIDE LEVEL 107 MEQ/L (98-107); CHOLESTEROL LEVEL 211 MG/DL (<200); CHOLESTEROL RISK RATIO 3.196 (<5); CREATININE FOR GFR 0.92 MG/DL (0.55-1.30); FERRITIN 16 NG/ML (8-252); FREE T4 1.18 NG/DL (0.76-1.46); GLOMERULAR FILTRATION RATE > 60.0 (>39); GLUCOSE, FASTING 92 MG/DL (70-100); HDL CHOLESTEROL 66 MG/DL (>40); IRON (FE) 68 UG/DL (50-170); LDL CHOLESTEROL 116 MG/DL (<100); NON-HDL-C 145 MG/DL; PERCENT SATURATION 16.9 % (13.2-45.0); POTASSIUM SERUM 5.2 MEQ/L (3.5-5.1); SODIUM LEVEL 141 MEQ/L (136-145); TOTAL IRON BINDING CAPACITY 402 UG/DL (250-450); TRIGLYCERIDES LEVEL 144 MG/DL (<150)
== END ==
LOC: M SFHCADAM 09:19
PROVIDERS: ATTEND Physician Assistant
DX: D47.3 Essential (hemorrhagic) thrombocythemia (principal); I10 Essential (primary) hypertension; E03.9 Hypothyroidism, unspecified; E78.5 Hyperlipidemia, unspecified

== ENCOUNTER → 2019-12-06 | Outpatient (CLI) | payer MEDICARE ==
[~2019-12-06] MED LIST changes: +ASPI-546 PO; -ASPI1TAB15 PO; +CALC-212 PO; -CALC600T7 PO; +ESOM0.1C PO; +PROBCAP14 PO
== END ==
LOC: M LABSMTC 10:43
PROVIDERS: ATTEND Anesthesiology
DX: Z03.818 Encounter for observation for suspected exposure to other biological agents ruled out (principal); Z11.59 Encounter for screening for other viral diseases
CPT/HCPCS: C9803; U0003

== ENCOUNTER 2019-12-09 13:44 | Day surgery (SDC) | payer MEDICARE ==
[~2019-12-09] VITALS: Ht 149.9 cm; Wt 64.0 kg
[~2019-12-09 13:44] MED LIST changes: -ASPI-546 PO; +ASPI1TAB15 PO; -CALC-212 PO; +CALC600T7 PO; +NS 1,000 ML IV ONE
[2019-12-09] MEDS ORDERED: propofoL 500 MG/50 ML VIAL As Ordered ONE (15:02)
[2019-12-09] MEDS ORDERED: propofoL 200 MG/20 ML VIAL As Ordered ONE (15:02)
[2019-12-09] MEDS ORDERED: LIDOCAINE 2% 100MG/5ML SDV (FOR ANES.) As Ordered ONE (15:02)
[2019-12-09] MEDS ORDERED: fentaNYL 100 MCG/2 ML INJECTION (J3010) As Ordered ONE (15:02)
--- NOTE | 2019-12-09 15:23 | ROOR ---
Patient Name: Lorena Cherry Procedure Date: 12/09/2019 2:58 PM Date of : 1940 Age: 79 Room: [facility] Gender: Female Note Status: Finalized Procedure: Upper GI endoscopy Indications: Follow-up of reflux esophagitis Providers: Rubin Laboy MD Referring MD: YARIEL Anderson Requesting Provider: Medicines: Monitored Anesthesia Care Complications: No immediate complications. Procedure: Pre-Anesthesia Assessment: - Prior to the procedure, a History and Physical was performed, and patient medications and allergies were reviewed. The patient is competent. The risks and benefits of the procedure and the sedation options and risks were discussed with the patient. All questions were answered and informed consent was obtained. Patient identification and proposed procedure were verified by the physician, the nurse and the anesthesiologist in the procedure room. Mental Status Examination: alert and oriented. Airway Examination: normal oropharyngeal airway and neck mobility. Respiratory Examination: clear to auscultation. CV Examination: normal. Prophylactic Antibiotics: The patient does not require prophylactic antibiotics. Prior Anticoagulants: The patient has taken no previous anticoagulant or antiplatelet agents. ASA Grade Assessment: III - A patient with severe systemic disease. After reviewing the risks and benefits, the patient was deemed in satisfactory condition to undergo the procedure. The anesthesia plan was to use monitored anesthesia care (MAC). Immediately prior to administration of medications, the patient was re-assessed for adequacy to receive sedatives. The heart rate, respiratory rate, oxygen saturations, blood pressure, adequacy of pulmonary ventilation, and response to care were monitored throughout the procedure. The physical status of the patient was re-assessed after the procedure. The Endoscope was introduced through the mouth, and advanced to the second part of duodenum. The upper GI endoscopy was accomplished without difficulty. The patient tolerated the procedure well. Findings: LA Grade A (one or more mucosal breaks less than 5 mm, not extending between tops of 2 mucosal folds) esophagitis with no bleeding was found 30 cm from the incisors. Biopsies were taken with a cold forceps for histology. Verification of patient identification for the specimen was done by the physician and nurse using the patient's name, date and medical record number. Estimated blood loss was minimal. A medium-sized hiatal hernia was present. No gross lesions were noted in the entire examined stomach. The duodenal bulb and second portion of the duodenum were normal. Impression: - LA Grade A reflux esophagitis. Rule out Odom's esophagus. Biopsied. - Medium-sized hiatal hernia. - No gross lesions in the stomach. - Normal duodenal bulb and second portion of the duodenum. Recommendation: - Patient has a contact number available for emergencies. The signs and symptoms of potential delayed complications were discussed with the patient. Return to normal activities tomorrow. Written discharge instructions were provided to the patient. - High fiber diet. - Continue present medications. - Recommend acid suppression medication. - Follow an antireflux regimen. - Await pathology results. - Telephone GI clinic for pathology results in 2 weeks. - Return to primary care physician. Rubin Laboy MD Rubin Laboy MD 12/09/2019 3:23:26 PM Electronically signed by Rubin Laboy MD Number of Addenda: 0 Note Initiated On: 12/09/2019 2:58 PM Estimated Blood Loss: Estimated blood loss was minimal.
[2019-12-09 15:45] VITALS: BP 179/79
== END 2019-12-09 15:55 | disposition home or self-care (01) ==
LOC: M OPP 13:44
PROVIDERS: ATTEND Internal Medicine Gastroenterology
DX: K21.0 Gastro-esophageal reflux disease with esophagitis (principal); I10 Essential (primary) hypertension; K44.9 Diaphragmatic hernia without obstruction or gangrene; Z79.82 Long term (current) use of aspirin; Z79.899 Other long term (current) drug therapy
CPT/HCPCS: 43239; 88305; J3010

== ENCOUNTER → 2020-04-03 | Outpatient (REF) | payer MEDICARE ==
[~2020-04-03] MED LIST changes: +ASPI-546 PO; -ASPI1TAB15 PO; +CALC-212 PO; -CALC600T7 PO; -NS 1,000 ML IV ONE
[2020-04-03 15:02] LABS: HEMATOCRIT 41.3 % (36.0-47.0); HEMOGLOBIN 12.9 g/dl (12.0-15.5); MEAN CORPUSCULAR HEMOGLOBIN 29.9 pg (27.0-33.0); MEAN CORPUSCULAR HGB CONC 31.2 g/dl (32.0-36.5); MEAN CORPUSCULAR VOLUME 95.6 fl (80.0-96.0); PLATELET COUNT, AUTOMATED 475 10^3/uL (150-450); RED BLOOD COUNT 4.32 10^6/uL (4.00-5.40); WHITE BLOOD COUNT 7.6 10^3/uL (4.0-10.0)
[2020-04-03 15:20] LABS: ALBUMIN 3.6 GM/DL (3.2-5.2); BILIRUBIN,TOTAL 0.5 MG/DL (0.2-1.0); CREATININE FOR GFR 0.97 MG/DL (0.55-1.30); GLOMERULAR FILTRATION RATE 59.1 (>39); POTASSIUM SERUM 5.1 MEQ/L (3.5-5.1); TOTAL PROTEIN 6.9 GM/DL (6.4-8.2)
[2020-04-03 15:35] LABS: MALB URINE SIEMENS 10.1 MG/L; MAU/CREAT RATIO 7.2 MCG/MG (0.0-30.0)
== END ==
LOC: M SFHCADAM 09:05
PROVIDERS: ATTEND Physician Assistant
DX: Z00.00 Encounter for general adult medical examination without abnormal findings (principal); I10 Essential (primary) hypertension; E03.9 Hypothyroidism, unspecified; E78.5 Hyperlipidemia, unspecified

== ENCOUNTER → 2020-04-13 | Outpatient (REF) | payer MEDICARE ==
[2020-04-13 17:58] LABS: FOLATE > 24.0 NG/ML; VITAMIN B12 LEVEL 1139 PG/ML
== END ==
LOC: M SFHCADAM 16:09
PROVIDERS: ATTEND Physician Assistant
DX: K14.6 Glossodynia (principal)

== ENCOUNTER → 2020-10-20 | Outpatient (REF) | payer MEDICARE ==
[~2020-10-20] MED LIST changes: +GABA-282 PO; -GABA-843 PO; +HYDR-3490 PO; -HYDR25TAB PO; -LISI-542 PO; +LISI-898 PO; +MONT10TA10 PO; -MONT10TA4 PO
[2020-10-20 13:05] LABS: HEMATOCRIT 43.1 % (36.0-47.0); MEAN CORPUSCULAR HEMOGLOBIN 31.6 pg (27.0-33.0); MEAN CORPUSCULAR HGB CONC 32.5 g/dl (32.0-36.5); MEAN CORPUSCULAR VOLUME 97.3 fl (80.0-96.0); PLATELET COUNT, AUTOMATED 542 10^3/uL (150-450); RED BLOOD COUNT 4.43 10^6/uL (4.00-5.40); WHITE BLOOD COUNT 7.5 10^3/uL (4.0-10.0)
[2020-10-20 13:34] LABS: CALCIUM LEVEL 10.5 MG/DL (8.8-10.2); CREATININE FOR GFR 0.97 MG/DL (0.55-1.30); POTASSIUM SERUM 5.1 MEQ/L (3.5-5.1)
[2020-10-20 13:35] LABS: ALBUMIN 3.9 GM/DL (3.2-5.2); BILIRUBIN,TOTAL 0.6 MG/DL (0.2-1.0); CHOLESTEROL RISK RATIO 2.746 (<5); FREE T4 1.2 NG/DL (0.76-1.46); THYROID STIMULATING HORMONE 1.97 uIU/ML (0.358-3.740); TOTAL PROTEIN 7.3 GM/DL (6.4-8.2)
== END ==
LOC: M SFHCADAM 10:00
PROVIDERS: ATTEND Physician Assistant
DX: I10 Essential (primary) hypertension (principal); E78.5 Hyperlipidemia, unspecified; K21.9 Gastro-esophageal reflux disease without esophagitis; E03.9 Hypothyroidism, unspecified

== ENCOUNTER 2020-12-08 10:24 | Inpatient (IN) | payer MEDICARE ==
[~2020-12-08] VITALS: Ht 144.8 cm; Wt 66.4 kg
[2020-12-08] MEDS ORDERED: MELO15TA28 PO (10:36)
[2020-12-08] MEDS ORDERED: HYDR-3490 PO (10:36)
[2020-12-08] MEDS ORDERED: ONDANSETRON 4MG/2ML VIAL IV ONE (11:40)
[2020-12-08] MEDS ORDERED: NS 1,000 ML IV ONE (11:40)
[2020-12-08] MEDS ORDERED: MORPHINE 4 MG/ML 1ML VIAL/SYRINGE (J2270) IV ONE (11:40)
[2020-12-08 11:42] LABS: BASO % 0.2 % (0.0-1.0); HEMATOCRIT 46.6 % (36.0-47.0); HEMOGLOBIN 15.5 g/dl (12.0-15.5); LYMPH # 0.6 10^3/uL (1.5-5.0); LYMPH % 2.8 % (24.0-44.0); MEAN CORPUSCULAR HEMOGLOBIN 32.4 pg (27.0-33.0); MEAN CORPUSCULAR HGB CONC 33.3 g/dl (32.0-36.5); MEAN CORPUSCULAR VOLUME 97.3 fl (80.0-96.0); MONO # 1.8 10^3/uL (0.0-0.8); MONO % 7.9 % (2.0-8.0); NEUTROPHILS # 19.9 10^3/uL (1.5-8.5); NEUTROPHILS % 88.5 % (36.0-66.0); PLATELET COUNT, AUTOMATED 500 10^3/uL (150-450); RED BLOOD COUNT 4.79 10^6/uL (4.00-5.40)
[2020-12-08 11:55] LABS: WHITE BLOOD COUNT 22.5 10^3/uL (4.0-10.0)
[2020-12-08 12:12] LABS: ALBUMIN 3.8 GM/DL (3.2-5.2); BILIRUBIN,DIRECT 0.2 MG/DL (0.0-0.2); BILIRUBIN,TOTAL 0.5 MG/DL (0.2-1.0); TOTAL PROTEIN 7.3 GM/DL (6.4-8.2)
[2020-12-08] MEDS: GASTROGRAFIN SOLUTION 30ML PO SCH ×2 (12:26→12:54)
--- NOTE | 2020-12-08 14:42 | REP ---
INDICATION: llq pain COMPARISON: 05/21/2018. TECHNIQUE: CT Scan of the abdomen and pelvis was performed without intravenous contrast. Sagittal and coronal reconstruction images performed. FINDINGS: Lung bases: There are mild fibrotic changes. There is a large hiatal hernia. Liver: Grossly unremarkable. Gallbladder: Unremarkable. Spleen: Grossly unremarkable. Adrenals: Normal. Pancreas: Grossly unremarkable.. Kidneys: A cystic structure is seen anteriorly in the upper pole the right kidney approximately 1.6 cm in diameter. There is no hydroureteronephrosis bilaterally. A punctate calcification is seen in the mid left kidney. Small and large bowel: There is diffuse thickening of the transverse and left colon with inflammatory stranding of the pericolonic fat, consistent with diffuse colitis in these regions.. There are multiple sigmoid diverticula. There is no free air. There is no obstruction. Free fluid: None. Abdominal aorta: No aneurysm. Adenopathy: None. Appendix: Not inflamed. Osseous structures: There are degenerative changes of the spine without compression deformity. Pelvis: No mass. No bladder calculus seen. Prior hysterectomy IMPRESSION: Diffuse colitis of the left and transverse colon. No free air or obstruction. Very mild free fluid in the pelvis. <Electronically signed by Brody Matute > 12/08/20 [id number]
[2020-12-08] MEDS ORDERED: NS 1,000 ML IV SCH (15:15)
[2020-12-08] MEDS ORDERED: SUCR1ORA PO (15:39)
[2020-12-08 16:19] LABS: RSV AMPLIFICATION NEGATIVE (NEGATIVE)
--- NOTE | 2020-12-08 19:50 | HPE ---
HISTORY AND PHYSICAL DATE OF ADMISSION: 12/08/2020 PRIMARY CARE PROVIDER; Devaughn Anderson CHIEF COMPLAINT: Bloody diarrhea. HISTORY OF PRESENT ILLNESS: Lorena Cherry is a 80-year-old in her usual state of health until yesterday when she started to have some crampy abdominal pain. She and her are camping with friends. She thinks she might have had some chicken that was possibly undercooked. Her daughter called her this morning, was having some GI distress after eating the same food. She felt weak. She had several episodes of diarrhea that eventually became bloody and had 3 or 4 episodes of emesis. She was brought to the Emergency Room. CT scan of the abdomen shows extensive colitis. She should be admitted for further therapy. She has no past history of C. difficile colitis that we are aware of. PAST MEDICAL HISTORY: She does have a history of low back pain, hypertensive heart disease, hyperlipidemia, osteopenia, hypothyroidism, allergy induced asthma; receiving allergy shots by an cpa tax in [place] through our office, GERD, sarcoidosis for which she follows with a product steward in [place], multilevel spinal stenosis; status post decompression L3 to S1 11/01 complicated by a postoperative wound infection, six weeks of I.V. Cefepime, requiring complicated closure by plastics. She also has history of peripheral neuropathy. She had bronchitis in [place], had antibiotic therapy, but that was almost two months ago. PAST SURGICAL HISTORY: Melanoma excision, rotator cuff procedure bilaterally, WILLIAM with BSO, spinal stenosis, decompression as noted above, EGD 08/04, chemical gastritis, colonoscopy showed adenomatous colon polyps. SOCIAL HISTORY: Nonsmoker. Rare alcohol use. She is , retired. ALLERGIES: None known. REVIEW OF SYSTEMS: No chest pain, shortness of breath, orthopnea, epistaxis, urinary bleeding. MEDICATIONS: 1. Aspirin 81 mg daily. 2. Probiotic. 3. Colace. 4. Calcium with Vitamin D. 5. MiraLax as needed. 6. Nexium 20 mg b.i.d. 7. Lisinopril 5 mg daily. 8. Gabapentin 300 mg at bedtime. 9. Singulair 10 mg daily. 10.Hydrochlorothiazide 25 mg daily. 11.Pravastatin 80 mg daily. 12.Levothyroxine 75 mcg daily. 13.Meloxicam 15 mg daily. 14.Lisinopril 5 mg daily. 15.Carafate slurry twice daily. 16.Verapamil ER 240 mg twice daily. PHYSICAL EXAMINATION: VITAL SIGNS: Per flow sheet. GENERAL APPEARANCE: Alert, conversant, in no distress, resting comfortably. HEENT: Grossly unremarkable. LUNGS: Clear. HEART: Without murmur. ABDOMEN: Soft, mildly tender in the upper abdomen and left side of the abdomen without guarding, rebound, referred pain. She looks mildly distended. Good bowel sounds. EXTREMITIES: No cyanosis, clubbing or edema. Normal strength in the arms and legs. LABORATORY DATA: White count 22,000, hemoglobin 15, platelets 500,000. Sodium 133,000, potassium 4.6, BUN 38, creatinine 1.9 (baseline creatinine approximately 0.9). Liver function tests are normal. Lipase normal. COVID test negative. IMAGING STUDIES: CT of the abdomen and pelvis showed diffuse colitis left and transverse colon no free air. IMPRESSION: 1. Colitis: Probably infectious. Concern about the possible food exposure. GI panel is pending and that will dictate any directed specific care. Clear liquids advised. Avoid antibiotic unless strongly indicated based on GI panel. 2. Acute kidney injury: I have ordered lactated ringers and repeat labs will be ordered in the morning. 3. Hypertension: Hold her Lisinopril in the face of acute kidney injury. Continue the Verapamil. 4. Hyperlipidemia: Continue Pravastatin. 5. Hypothyroidism: Continue dose of Levothyroxine. 6. GERD: Continue Protonix and Carafate.
[2020-12-08] MEDS: LR 1,000 ML IV SCH (20:00)
[2020-12-08] MEDS: VERAPAMIL 120 MG SR TAB PO SCH (20:04)
[2020-12-08] MEDS: SUCRALFATE SUSP 1GM/10ML UD PO SCH (20:04)
[2020-12-08] MEDS ORDERED: MORPHINE 2 MG/ML 1ML VIAL (J2270) IV PRN (20:10)
[2020-12-08] MEDS ORDERED: FIORICET TAB PO ONE (20:15)
[2020-12-08 22:00] VITALS: BP 168/72
[2020-12-09 02:00] VITALS: BP 107/68
[2020-12-09] MEDS: LR 1,000 ML IV SCH ×3 (02:32→21:26)
[2020-12-09] MEDS: LEVOTHYROXINE 75MCG TABLET (0.075MG) PO SCH (05:26)
[2020-12-09 06:00] VITALS: BP 122/58
[2020-12-09 06:37] LABS: HEMATOCRIT 35.4 % (36.0-47.0); MEAN CORPUSCULAR HEMOGLOBIN 32.6 pg (27.0-33.0); MEAN CORPUSCULAR HGB CONC 33.6 g/dl (32.0-36.5); RED BLOOD COUNT 3.65 10^6/uL (4.00-5.40)
[2020-12-09 06:50] LABS: BLOOD UREA NITROGEN 19 MG/DL (7-18); CALCIUM LEVEL 9.1 MG/DL (8.8-10.2); CARBON DIOXIDE LEVEL 25 MEQ/L (21-32); CHLORIDE LEVEL 104 MEQ/L (98-107); CREATININE FOR GFR 0.89 MG/DL (0.55-1.30); GLOMERULAR FILTRATION RATE > 60.0 (>39); GLUCOSE, FASTING 93 MG/DL (70-100); MAGNESIUM LEVEL 1.9 MG/DL (1.8-2.4); POTASSIUM SERUM 4.5 MEQ/L (3.5-5.1); SODIUM LEVEL 136 MEQ/L (136-145)
[2020-12-09 07:20] LABS: HEMOGLOBIN 11.9 g/dl (12.0-15.5); PLATELET COUNT, AUTOMATED 368 10^3/uL (150-450)
[2020-12-09] MEDS: ACETAMINOPHEN TAB 650MG DOSE (2X325MG) PO PRN ×2 (09:18→18:09)
[2020-12-09] MEDS: PRAVASTATIN 20 MG TAB PO SCH (09:18)
[2020-12-09] MEDS: PANTOPRAZOLE 40MG TAB (PROTONIX) PO SCH (09:18)
[2020-12-09] MEDS: MONTELUKAST 10 MG TAB PO SCH (09:19)
[2020-12-09] MEDS: VERAPAMIL 120 MG SR TAB PO SCH ×2 (09:19→21:27)
[2020-12-09 10:00] VITALS: BP 123/88
--- NOTE | 2020-12-09 10:25 | IPN ---
PROGRESS NOTE DATE: 12/09/2020 SUBJECTIVE: Lorena still has quite a bit of abdominal pain and diarrhea occasionally bloody. GI panel is negative for enteric pathogens. She has quite a bit of a headache. No neck stiffness. OBJECTIVE: VITAL SIGNS: Afebrile. Vital signs stable. NECK: Supple. LUNGS: Clear. HEART: Regular rate without murmur. ABDOMEN: Soft. Diffusely tender particularly the upper abdomen on the left side. She is not distended. Bowel sounds are present. EXTREMITIES: No peripheral edema. LABORATORY DATA: White count is down to 15,000, hemoglobin 11.9. Electrolytes unremarkable. Creatinine is down from 1.9 to her baseline of 0.9. ASSESSMENT AND PLAN: 1. Colitis. Will start Cipro and Flagyl now that we know she does not have Clostridium (C.) difficile. 2. Acute kidney injury. This has resolved with hydration. We will reduce the IV fluid rate and probably discontinue the IV fluids tomorrow. We are advancing her diet. 3. Acute blood loss anemia secondary to bloody diarrhea from colitis. Serial CBCs have been ordered. She has not required transfusion at this point. The bleeding has improved since admission. 4. Hypertension well-controlled on current regimen. The rest of her medical problems are stable at this time.
[2020-12-09] MEDS: CIPROFLOXACIN 400 MG in IV 1 EA IV SCH ×2 (10:34→21:26)
[2020-12-09] MEDS: metroNIDAZOLE 500 MG in IV 1 EA IV SCH ×2 (12:55→18:03)
[2020-12-09 14:00] VITALS: BP 147/65
[2020-12-09 18:00] VITALS: BP 118/51
--- NOTE | 2020-12-09 20:40 | ECGEPIP ---
[facility] - ED Test Date: 2020-12-08 Pat Name: TRISH POSADA Department: Room: - Gender: Female Electrical Assembler: CARRIE : 1940 Requested By: ANNALEE MERINO PA-C Order Number: [id number] Reading MD: Shantel Abernathy Measurements Intervals [place] Rate: 78 P: 25 NC: 146 QRS: -2 QRSD: 80 T: 25 QT: 374 QTc: 426 Interpretive Statements Normal sinus rhythm NSTTW abnormalities No prior Electronically Signed on 12-09-2020 20:39:59 EDT by Shantel Abernathy
[2020-12-09] MEDS: SUCRALFATE SUSP 1GM/10ML UD PO SCH (21:26)
[2020-12-09 21:59] VITALS: BP 119/53
[2020-12-10] VITALS (7 sets, daily range): BP systolic 122–170; BP diastolic 48–78
[2020-12-10] MEDS: metroNIDAZOLE 500 MG in IV 1 EA IV SCH ×3 (02:40→18:11)
[2020-12-10] MEDS: LEVOTHYROXINE 75MCG TABLET (0.075MG) PO SCH (05:44)
[2020-12-10 06:53] LABS: HEMOGLOBIN 11.9 g/dl (12.0-15.5); MEAN CORPUSCULAR HEMOGLOBIN 31.9 pg (27.0-33.0); MEAN CORPUSCULAR HGB CONC 33.1 g/dl (32.0-36.5); MEAN CORPUSCULAR VOLUME 96.5 fl (80.0-96.0); PLATELET COUNT, AUTOMATED 360 10^3/uL (150-450); RED BLOOD COUNT 3.73 10^6/uL (4.00-5.40); WHITE BLOOD COUNT 15.3 10^3/uL (4.0-10.0)
[2020-12-10 07:10] LABS: BLOOD UREA NITROGEN 11 MG/DL (7-18); CALCIUM LEVEL 9.3 MG/DL (8.8-10.2); CARBON DIOXIDE LEVEL 26 MEQ/L (21-32); CHLORIDE LEVEL 105 MEQ/L (98-107); CREATININE FOR GFR 0.77 MG/DL (0.55-1.30); GLOMERULAR FILTRATION RATE > 60.0 (>39); GLUCOSE, FASTING 101 MG/DL (70-100); MAGNESIUM LEVEL 1.8 MG/DL (1.8-2.4); SODIUM LEVEL 139 MEQ/L (136-145)
[2020-12-10] MEDS: VERAPAMIL 120 MG SR TAB PO SCH ×2 (09:01→21:02)
[2020-12-10] MEDS: PANTOPRAZOLE 40MG TAB (PROTONIX) PO SCH (09:02)
[2020-12-10] MEDS: CIPROFLOXACIN 400 MG in IV 1 EA IV SCH ×2 (09:02→21:00)
[2020-12-10] MEDS: PRAVASTATIN 20 MG TAB PO SCH (09:02)
[2020-12-10] MEDS: MONTELUKAST 10 MG TAB PO SCH (09:02)
[2020-12-10] MEDS: ACETAMINOPHEN TAB 650MG DOSE (2X325MG) PO PRN (09:03)
--- NOTE | 2020-12-10 09:56 | IPN ---
PROGRESS NOTE DATE: 12/10/2020 SUBJECTIVE: Lorena is still having some abdominal pain from her colitis. She feels a little better than yesterday. No fever, no chills, and no rectal bleeding. OBJECTIVE: VITAL SIGNS: Afebrile. Vital signs stable. LUNGS: Clear. HEART: Regular rhythm. ABDOMEN: Soft. Tender in the upper abdomen in the left abdomen a little better than yesterday. EXTREMITIES: No peripheral edema. LABORATORY DATA: White count 15.3, hemoglobin 11.9, electrolytes unremarkable. Potassium 4.0. Renal function normal. ASSESSMENT AND PLAN: 1. Colitis. Continue intravenous (IV) Cipro and Flagyl. Probably transition to oral antibiotic and discharge tomorrow. 2. Acute kidney injury, resolved with hydration. 3. Acute blood loss anemia secondary to bloody diarrhea. CBC is now stable. 4. Hypertension. Blood pressure is mildly elevated a result of her pain. I would not change her medication regimen at this point. Today we are stopping her IV fluids and I anticipate discharge tomorrow if stable.
[2020-12-10] MEDS: SUCRALFATE SUSP 1GM/10ML UD PO SCH (21:00)
[2020-12-11 02:00] VITALS: BP 160/77
[2020-12-11] MEDS: metroNIDAZOLE 500 MG in IV 1 EA IV SCH ×2 (02:38→11:04)
[2020-12-11] MEDS: LEVOTHYROXINE 75MCG TABLET (0.075MG) PO SCH (05:19)
[2020-12-11 06:00] VITALS: BP 159/76
[2020-12-11 06:38] LABS: HEMATOCRIT 37.8 % (36.0-47.0); HEMOGLOBIN 12.4 g/dl (12.0-15.5); MEAN CORPUSCULAR HEMOGLOBIN 31.6 pg (27.0-33.0); MEAN CORPUSCULAR HGB CONC 32.8 g/dl (32.0-36.5); MEAN CORPUSCULAR VOLUME 96.2 fl (80.0-96.0); PLATELET COUNT, AUTOMATED 413 10^3/uL (150-450); RED BLOOD COUNT 3.93 10^6/uL (4.00-5.40); WHITE BLOOD COUNT 11.9 10^3/uL (4.0-10.0)
[2020-12-11 06:52] LABS: BLOOD UREA NITROGEN 7 MG/DL (7-18); CALCIUM LEVEL 9.1 MG/DL (8.8-10.2); CARBON DIOXIDE LEVEL 28 MEQ/L (21-32); CHLORIDE LEVEL 104 MEQ/L (98-107); CREATININE FOR GFR 0.64 MG/DL (0.55-1.30); GLOMERULAR FILTRATION RATE > 60.0 (>39); GLUCOSE, FASTING 101 MG/DL (70-100); MAGNESIUM LEVEL 1.8 MG/DL (1.8-2.4); POTASSIUM SERUM 3.9 MEQ/L (3.5-5.1); SODIUM LEVEL 137 MEQ/L (136-145)
[2020-12-11] MEDS: PANTOPRAZOLE 40MG TAB (PROTONIX) PO SCH (09:14)
[2020-12-11] MEDS: PRAVASTATIN 20 MG TAB PO SCH (09:14)
[2020-12-11] MEDS: CIPROFLOXACIN 400 MG in IV 1 EA IV SCH (09:14)
[2020-12-11] MEDS: VERAPAMIL 120 MG SR TAB PO SCH (09:15)
[2020-12-11] MEDS: MONTELUKAST 10 MG TAB PO SCH (09:15)
[2020-12-11] MEDS ORDERED: NITR-67 PO (11:21)
--- NOTE | 2020-12-11 16:00 | DSES ---
DISCHARGE SUMMARY DATE OF ADMISSION: 12/08/2020 DATE OF DISCHARGE: 12/11/2020 PRINCIPLE DIAGNOSIS: Colitis, transverse and descending colon, etiology unknown. SECONDARY DIAGNOSES: 1. Acute kidney injury secondary to dehydration. 2. Hypertensive heart disease. 3. Hyperlipidemia. 4. Hypothyroidism. 5. Gastroesophageal reflux disease (GERD). 6. Chronic low back pain with multilevel spinal stenosis. HISTORY: Patient presented with bloody diarrhea. CT showed colitis. For details, see history and physical on admission. HOSPITAL COURSE: Patient admitted to the medical bed. Urine culture growing enterococcus, that was just reported today, sensitive to nitrofurantoin. Gastrointestinal (GI) panel was negative. She was placed on Cipro and Flagyl. Diarrhea improved. Rectal bleeding resolved. Lab work was followed periodically. Hemoglobin remained stable. LABORATORY DATA: Today, white count is 11, hemoglobin 12.4, platelets 413. Sodium 137, potassium 3.9, BUN 7, creatinine 0.6, glucose 101. DISPOSITION: Discharged home today in improved and stable condition. She will follow up with her primary care provider, Devaughn Anderson in a week. Activity as tolerated. No added salt diet recommended. MEDICATIONS ON DISCHARGE: - Macrobid for five days for enterococcal urinary tract infection (UTI). - continue aspirin 81 mg daily - Colace as needed - esomeprazole 20 mg twice a day - Flovent two puffs twice a day - fluticasone one spray daily - hydrochlorothiazide 25 mg daily - probiotic daily - levothyroxine 75 mcg daily - lisinopril 5 mg daily - Singulair 10 mg daily - MiraLax as needed - pravastatin 80 mg daily - Carafate suspension 10 mL in the evening - Verapamil ER 240 mg daily We are holding her meloxicam. Renal function has returned to baseline, but we will hold this on discharge. A prescription for Macrobid for five days was sent to her pharmacy. At the time of dictation, there were no pending labs.
== END 2020-12-11 12:50 | disposition home or self-care (01) | DRG 392 ==
LOC: M ED 10:24 → M ED INP 16:53 → ENRESERV 18:48 → M MSPAV 19:50
PROVIDERS: ADMIT Family Medicine; ATTEND Family Medicine
DX: K52.9 Noninfective gastroenteritis and colitis, unspecified (principal); N17.9 Acute kidney failure, unspecified; D62 Acute posthemorrhagic anemia; N39.0 Urinary tract infection, site not specified; M54.5 Low back pain; I11.9 Hypertensive heart disease without heart failure; E78.5 Hyperlipidemia, unspecified; M85.88 Other specified disorders of bone density and structure, other site; E03.9 Hypothyroidism, unspecified; G40.909 Epilepsy, unspecified, not intractable, without status epilepticus; K21.9 Gastro-esophageal reflux disease without esophagitis; D86.9 Sarcoidosis, unspecified; M48.00 Spinal stenosis, site unspecified; G62.9 Polyneuropathy, unspecified; Z85.828 Personal history of other malignant neoplasm of skin; Z79.82 Long term (current) use of aspirin; Z79.899 Other long term (current) drug therapy; Z20.822 Contact with and (suspected) exposure to COVID-19; E86.0 Dehydration

== ENCOUNTER → 2021-03-12 | Outpatient (REF) | payer MEDICARE ==
[~2021-03-12] MED LIST changes: +NITR-67 PO; +SUCR1ORA PO
[2021-03-12 15:36] LABS: ALBUMIN 3.5 GM/DL (3.2-5.2); ALT/SGPT 22 U/L (12-78); BILIRUBIN,TOTAL 0.6 MG/DL (0.2-1.0); BLOOD UREA NITROGEN 20 MG/DL (7-18); CALCIUM LEVEL 9.9 MG/DL (8.8-10.2); CARBON DIOXIDE LEVEL 31 MEQ/L (21-32); CHLORIDE LEVEL 102 MEQ/L (98-107); GLOMERULAR FILTRATION RATE > 60.0 (>39); GLUCOSE, FASTING 80 MG/DL (70-100); POTASSIUM SERUM 4.6 MEQ/L (3.5-5.1); SODIUM LEVEL 137 MEQ/L (136-145); TOTAL PROTEIN 6.8 GM/DL (6.4-8.2)
[2021-03-12 15:45] LABS: FOLATE > 24.0 NG/ML; TOTAL 25(OH) VITAMIN D 32.2 NG/ML (30.0-100.0); VITAMIN B12 LEVEL 828 PG/ML
== END ==
LOC: M SFHCADAM 09:57
PROVIDERS: ATTEND Physician Assistant
DX: I10 Essential (primary) hypertension (principal); G62.9 Polyneuropathy, unspecified; M54.5 Low back pain

== ENCOUNTER → 2021-12-11 | Outpatient (REF) | payer MEDICARE ==
[~2021-12-11] MED LIST changes: -LISI-898 PO; +LISI5TAB11 PO; -MONT10TA10 PO; +MONT10TA97 PO; +VERA240T65 PO; -VERA24TASA PO
[2021-12-11 13:22] LABS: HEMATOCRIT 40.7 % (36.0-47.0); HEMOGLOBIN 13.5 g/dl (12.0-15.5); MEAN CORPUSCULAR HEMOGLOBIN 31.3 pg (27.0-33.0); MEAN CORPUSCULAR HGB CONC 33.2 g/dl (32.0-36.5); MEAN CORPUSCULAR VOLUME 94.4 fl (80.0-96.0); PLATELET COUNT, AUTOMATED 485 10^3/uL (150-450); RED BLOOD COUNT 4.31 10^6/uL (4.00-5.40); WHITE BLOOD COUNT 6.3 10^3/uL (4.0-10.0)
[2021-12-11 14:00] LABS: ALBUMIN 3.5 GM/DL (3.2-5.2); ALT/SGPT 18 U/L (12-78); BILIRUBIN,TOTAL 0.5 MG/DL (0.2-1.0); BLOOD UREA NITROGEN 19 MG/DL (7-18); CALCIUM LEVEL 10.4 MG/DL (8.8-10.2); CARBON DIOXIDE LEVEL 28 MEQ/L (21-32); CHLORIDE LEVEL 106 MEQ/L (98-107); CHOLESTEROL LEVEL 193 MG/DL (<200); CHOLESTEROL RISK RATIO 3.063 (<5); CREATININE FOR GFR 0.89 MG/DL (0.55-1.30); FREE T4 1.17 NG/DL (0.76-1.46); GLOMERULAR FILTRATION RATE > 60.0 (>32); GLUCOSE, FASTING 87 MG/DL (70-100); HDL CHOLESTEROL 63 MG/DL (>40); LDL CHOLESTEROL 106 MG/DL (<100); NON-HDL-C 130 MG/DL; POTASSIUM SERUM 4.9 MEQ/L (3.5-5.1); SODIUM LEVEL 140 MEQ/L (136-145); TOTAL PROTEIN 6.5 GM/DL (6.4-8.2); TRIGLYCERIDES LEVEL 118 MG/DL (<150)
[2021-12-11 14:06] LABS: CREATININE, URINE 71.2 MG/DL; MALB URINE SIEMENS 6.2 MG/L; MAU/CREAT RATIO 8.7 MCG/MG (0.0-30.0)
[2021-12-11 14:15] LABS: TOTAL 25(OH) VITAMIN D 43.7 NG/ML (30.0-100.0)
[2021-12-11 14:16] LABS: FOLATE > 24.0 NG/ML; VITAMIN B12 LEVEL 639 PG/ML
== END ==
LOC: M SFHCADAM 08:51
PROVIDERS: ATTEND Physician Assistant
DX: G62.9 Polyneuropathy, unspecified (principal); I10 Essential (primary) hypertension; E78.5 Hyperlipidemia, unspecified; E03.9 Hypothyroidism, unspecified

== ENCOUNTER → 2022-02-06 | Outpatient (REF) | payer MEDICARE ==
[~2022-02-06] MED LIST changes: +BIOT1CAP2 PO; +GABA-1171 PO; +SYMB80INH INH
== END ==
LOC: M SFHCADAM 12:51
PROVIDERS: ATTEND Physician Assistant
DX: J01.90 Acute sinusitis, unspecified (principal)

== ENCOUNTER → 2022-02-19 | Outpatient (CLI) | payer MEDICARE | LOC: M LABSMTC 10:35 | PROVIDERS: ATTEND Anesthesiology | DX: Z01.818 Encounter for other preprocedural examination (principal); Z11.52 Encounter for screening for COVID-19 ==

== ENCOUNTER 2022-02-21 08:34 | Day surgery (SDC) | payer MEDICARE ==
[~2022-02-21] VITALS: Ht 147.3 cm; Wt 61.7 kg
[~2022-02-21 08:34] MED LIST changes: +NS 1,000 ML IV ONE
[2022-02-21] MEDS ORDERED: LIDOCAINE 2% 100MG/5ML SDV (FOR ANES.) As Ordered ONE (08:41)
[2022-02-21] MEDS ORDERED: propofoL 200 MG/20 ML VIAL As Ordered ONE ×2 (08:41→08:42)
[2022-02-21] MEDS ORDERED: ONDANSETRON 4MG 2ML VIAL IV ONE (09:20)
[2022-02-21 11:43] VITALS: BP 172/77
== END 2022-02-21 12:15 | disposition home or self-care (01) ==
LOC: M OPP 08:34
PROVIDERS: ATTEND Internal Medicine Gastroenterology
DX: Z12.11 Encounter for screening for malignant neoplasm of colon (principal); Z86.010 Personal history of colon polyps; D12.2 Benign neoplasm of ascending colon; D12.4 Benign neoplasm of descending colon; D12.5 Benign neoplasm of sigmoid colon; K57.30 Diverticulosis of large intestine without perforation or abscess without bleeding; K63.89 Other specified diseases of intestine; K64.4 Residual hemorrhoidal skin tags; K64.8 Other hemorrhoids; K44.9 Diaphragmatic hernia without obstruction or gangrene; K29.71 Gastritis, unspecified, with bleeding; K21.00 Gastro-esophageal reflux disease with esophagitis, without bleeding; Z79.51 Long term (current) use of inhaled steroids; Z79.82 Long term (current) use of aspirin; Z79.891 Long term (current) use of opiate analgesic; Z79.899 Other long term (current) drug therapy; D86.9 Sarcoidosis, unspecified; I10 Essential (primary) hypertension; E78.5 Hyperlipidemia, unspecified; E30.9 Disorder of puberty, unspecified; J45.909 Unspecified asthma, uncomplicated; Z85.820 Personal history of malignant melanoma of skin; E03.9 Hypothyroidism, unspecified
CPT/HCPCS: 43239; 45380; 45385; 88305; J2405

== ENCOUNTER → 2022-10-16 | Outpatient (REF) | payer MEDICARE ==
[~2022-10-16] MED LIST changes: +FLUT50SP17 NARES; -FLUTISP NARES; -NS 1,000 ML IV ONE
[2022-10-16 13:27] LABS: HEMATOCRIT 42.2 % (36.0-47.0); HEMOGLOBIN 13.8 g/dl (12.0-15.5); MEAN CORPUSCULAR HEMOGLOBIN 31.5 pg (27.0-33.0); MEAN CORPUSCULAR HGB CONC 32.7 g/dl (32.0-36.5); MEAN CORPUSCULAR VOLUME 96.3 fl (80.0-96.0); PLATELET COUNT, AUTOMATED 501 10^3/uL (150-450); RED BLOOD COUNT 4.38 10^6/uL (4.00-5.40); WHITE BLOOD COUNT 7.4 10^3/uL (4.0-10.0)
[2022-10-16 13:56] LABS: ALBUMIN 3.9 G/DL (3.2-5.2); ALKALINE PHOSPHATASE 55 U/L (46-116); ALT/SGPT 18 U/L (7.0-40); AST/SGOT 20 U/L (<34); BILIRUBIN,TOTAL 0.7 MG/DL (0.3-1.2); BLOOD UREA NITROGEN 22 MG/DL (9-23); CALCIUM LEVEL 10.6 MG/DL (8.3-10.6); CARBON DIOXIDE LEVEL 29 MMOL/L (20-31); CHLORIDE LEVEL 101 MMOL/L (98-107); CHOLESTEROL LEVEL 179 MG/DL (<200); CHOLESTEROL RISK RATIO 2.81 (<5); CREATININE FOR GFR 0.94 MG/DL (0.55-1.30); GLOMERULAR FILTRATION RATE > 60.0 (>32); GLUCOSE, FASTING 80 MG/DL (74-106); HDL CHOLESTEROL 63.5 MG/DL (>40); LDL CHOLESTEROL 91.5 MG/DL (<100); NON-HDL-C 115.5 MG/DL; POTASSIUM SERUM 5.1 MMOL/L (3.5-5.1); SODIUM LEVEL 136 MMOL/L (136-145); TOTAL PROTEIN 6.9 G/DL (5.7-8.2); TRIGLYCERIDES LEVEL 120 MG/DL (<150)
[2022-10-16 14:00] LABS: FOLATE > 24.0 NG/ML (>5.4); TOTAL 25(OH) VITAMIN D 45.7 NG/ML (20.0-100.0); VITAMIN B12 LEVEL 1004 PG/ML (211-911)
[2022-10-16 14:02] LABS: FREE T4 1.38 NG/DL (0.89-1.76); THYROID STIMULATING HORMONE 2.172 uIU/ML (0.55-4.78)
== END ==
LOC: M SFHCADAM 10:32
PROVIDERS: ATTEND Physician Assistant
DX: I10 Essential (primary) hypertension (principal); E78.5 Hyperlipidemia, unspecified; E03.9 Hypothyroidism, unspecified; M54.16 Radiculopathy, lumbar region

== ENCOUNTER 2023-03-25 06:09 | Day surgery (SDC) | payer MEDICARE ==
[~2023-03-25] VITALS: Ht 147.3 cm; Wt 56.7 kg
[~2023-03-25 06:09] MED LIST changes: +ALEN70TA82; +BUDE10.7; +HYDR200T46 PO; +VITA100091 PO; +WHEA1TAB2 PO; +ceFAZolin SOD 2 GM in IV 1 EA IV ONE
[2023-03-25] MEDS ORDERED: LR 1,000 ML IV SCH ×2 (06:25→08:55)
[2023-03-25] MEDS ORDERED: propofoL 200 MG/20 ML VIAL As Ordered ONE (07:07)
[2023-03-25] MEDS ORDERED: LIDOCAINE 2% 100MG/5ML SDV (FOR ANES.) As Ordered ONE (07:08)
[2023-03-25] MEDS ORDERED: ROCURONIUM BROMIDE 50MG/5ML VIAL As Ordered ONE (07:08)
[2023-03-25] MEDS ORDERED: ACETAMINOPHEN 1000MG 100ML IV BAG As Ordered ONE (07:09)
[2023-03-25] MEDS ORDERED: ONDANSETRON 4MG 2ML VIAL As Ordered ONE (07:09)
[2023-03-25] MEDS ORDERED: fentaNYL 100 MCG/2 ML INJECTION As Ordered ONE (07:12)
[2023-03-25] MEDS ORDERED: dexmedeTOMIDine (4MCG/ML)200MCG/50ML BTL (PRECEDEX) As Ordered ONE (08:11)
[2023-03-25] MEDS ORDERED: SUGAMMADEX SODIUM 500 MG/5 ML VIAL (BRIDION) As Ordered ONE (08:12)
[2023-03-25] MEDS ORDERED: KETOROLAC 60MG 2ML VIAL As Ordered ONE (08:12)
[2023-03-25] MEDS ORDERED: fentaNYL 100 MCG/2 ML INJECTION IV PRN (08:55)
[2023-03-25] MEDS ORDERED: ONDANSETRON 4MG 2ML VIAL IV PRN (08:55)
[2023-03-25] MEDS ORDERED: NS 1,000 ML IV SCH (09:30)
[2023-03-25] MEDS ORDERED: traMADol 50 MG TAB PO PRN ×2 (09:30→09:35)
[2023-03-25] MEDS: oxyCODONE 5MG TAB PO PRN ×2 (09:36→10:06)
[2023-03-25 11:23] VITALS: BP 137/67; TEMP 97.7; O2SAT 95
== END 2023-03-25 11:23 | disposition home or self-care (01) ==
LOC: M SDC 06:09
PROVIDERS: ATTEND Surgery
DX: K40.90 Unilateral inguinal hernia, without obstruction or gangrene, not specified as recurrent (principal); I10 Essential (primary) hypertension; E78.5 Hyperlipidemia, unspecified; K21.9 Gastro-esophageal reflux disease without esophagitis; Z79.82 Long term (current) use of aspirin; Z79.899 Other long term (current) drug therapy; E03.9 Hypothyroidism, unspecified; K57.92 Diverticulitis of intestine, part unspecified, without perforation or abscess without bleeding; K44.9 Diaphragmatic hernia without obstruction or gangrene
CPT/HCPCS: 49650; C1781; J0131; J0665; J0690; J1100; J1885; J2405; J3010; S2900

== ENCOUNTER → 2023-10-14 | Outpatient (REF) | payer MEDICARE ==
[~2023-10-14] MED LIST changes: -FLUT50SP17 NARES; +FLUTISP NARES; -ceFAZolin SOD 2 GM in IV 1 EA IV ONE
[2023-10-14 12:44] LABS: HEMATOCRIT 35.3 % (36.0-47.0); HEMOGLOBIN 11.6 g/dl (12.0-15.5); MEAN CORPUSCULAR HEMOGLOBIN 29.7 pg (27.0-33.0); MEAN CORPUSCULAR HGB CONC 32.9 g/dl (32.0-36.5); MEAN CORPUSCULAR VOLUME 90.5 fl (80.0-96.0); PLATELET COUNT, AUTOMATED 722 10^3/uL (150-450); WHITE BLOOD COUNT 6.7 10^3/uL (4.0-10.0)
[2023-10-14 13:10] LABS: ALBUMIN 3.2 G/DL (3.2-5.2); ALKALINE PHOSPHATASE 43 U/L (46-116); ALT/SGPT 15 U/L (7.0-40); AST/SGOT 20 U/L (<34); BILIRUBIN,TOTAL 0.5 MG/DL (0.3-1.2); BLOOD UREA NITROGEN 21 MG/DL (9-23); CALCIUM LEVEL 10.5 MG/DL (8.3-10.6); CARBON DIOXIDE LEVEL 28 MMOL/L (20-31); CHLORIDE LEVEL 100 MMOL/L (98-107); CHOLESTEROL LEVEL 158 MG/DL (<200); CHOLESTEROL RISK RATIO 2.27 (<5); CREATININE FOR GFR 0.94 MG/DL (0.55-1.30); GLOMERULAR FILTRATION RATE > 60.0 (>32); GLUCOSE, FASTING 83 MG/DL (74-106); HDL CHOLESTEROL 69.4 MG/DL (>40); LDL CHOLESTEROL 72.8 MG/DL (<100); NON-HDL-C 88.6 MG/DL; POTASSIUM SERUM 4.5 MMOL/L (3.5-5.1); SODIUM LEVEL 135 MMOL/L (136-145); TOTAL PROTEIN 5.8 G/DL (5.7-8.2); TRIGLYCERIDES LEVEL 79 MG/DL (<150)
[2023-10-14 13:11] LABS: THYROID STIMULATING HORMONE 2.895 uIU/ML (0.55-4.78)
[2023-10-14 13:12] LABS: FREE T4 1.54 NG/DL (0.89-1.76)
== END ==
LOC: M SFHCADAM 10:00
PROVIDERS: ATTEND Physician Assistant
DX: I10 Essential (primary) hypertension (principal); E78.5 Hyperlipidemia, unspecified; J45.20 Mild intermittent asthma, uncomplicated; E03.9 Hypothyroidism, unspecified; K21.9 Gastro-esophageal reflux disease without esophagitis; M81.0 Age-related osteoporosis without current pathological fracture; M13.0 Polyarthritis, unspecified

== ENCOUNTER → 2023-10-28 | Outpatient (REF) | payer MEDICARE ==
[2023-10-28 14:24] LABS: FOLATE > 24.0 NG/ML (>5.4)
[2023-10-28 14:26] LABS: TOTAL 25(OH) VITAMIN D 37.1 NG/ML (20.0-100.0)
[2023-10-28 14:27] LABS: VITAMIN B12 LEVEL 767 PG/ML (211-911)
== END ==
LOC: M SFHCADAM 08:32
PROVIDERS: ATTEND Physician Assistant
DX: K21.9 Gastro-esophageal reflux disease without esophagitis (principal); Z79.899 Other long term (current) drug therapy

== ENCOUNTER → 2024-02-25 | Outpatient (REF) | payer MEDICARE ==
[~2024-02-25] MED LIST changes: -ESOM0.1C PO; +ESOM20CA2 PO
[2024-02-25 17:46] LABS: BASO % 0.1 % (0.0-1.0); HEMATOCRIT 29.4 % (36.0-47.0); HEMOGLOBIN 9.2 g/dl (12.0-15.5); LYMPH # 0.5 10^3/uL (1.5-5.0); LYMPH % 3.5 % (24.0-44.0); MEAN CORPUSCULAR HEMOGLOBIN 23.6 pg (27.0-33.0); MEAN CORPUSCULAR HGB CONC 31.3 g/dl (32.0-36.5); MEAN CORPUSCULAR VOLUME 75.4 fl (80.0-96.0); MONO # 1.8 10^3/uL (0.0-0.8); MONO % 12.3 % (2.0-8.0); NEUTROPHILS # 12.4 10^3/uL (1.5-8.5); NEUTROPHILS % 83.4 % (36.0-66.0); PLATELET COUNT, AUTOMATED 635 10^3/uL (150-450); WHITE BLOOD COUNT 14.8 10^3/uL (4.0-10.0)
[2024-02-25 17:47] LABS: ALBUMIN 3.6 G/DL (3.2-5.2); ALKALINE PHOSPHATASE 44 U/L (46-116); ALT/SGPT 27 U/L (7.0-40); AST/SGOT 21 U/L (<34); BILIRUBIN,TOTAL 0.4 MG/DL (0.3-1.2); BLOOD UREA NITROGEN 30 MG/DL (9-23); CALCIUM LEVEL 10.2 MG/DL (8.3-10.6); CARBON DIOXIDE LEVEL 26 MMOL/L (20-31); CHLORIDE LEVEL 101 MMOL/L (98-107); CREATININE FOR GFR 0.91 MG/DL (0.55-1.30); GLOMERULAR FILTRATION RATE > 60.0 (>32); GLUCOSE, FASTING 83 MG/DL (74-106); IRON (FE) 12 UG/DL (50-170); POTASSIUM SERUM 4.2 MMOL/L (3.5-5.1); SODIUM LEVEL 131 MMOL/L (136-145); TOTAL IRON BINDING CAPACITY 405 UG/DL (250-425); TOTAL PROTEIN 6.3 G/DL (5.7-8.2)
[2024-02-25 17:49] LABS: FERRITIN 14.4 NG/ML (7.3-270.7); FOLATE > 24.0 NG/ML (>5.4)
[2024-02-25 17:50] LABS: VITAMIN B12 LEVEL 630 PG/ML (211-911)
== END ==
LOC: M SFHCADAM 14:42
PROVIDERS: ATTEND Physician Assistant
DX: D64.9 Anemia, unspecified (principal)

== ENCOUNTER → 2024-02-26 | Outpatient (REF) | payer MEDICARE | LOC: M SFHCADAM 12:36 | PROVIDERS: ATTEND Physician Assistant | DX: D64.9 Anemia, unspecified (principal) ==

== ENCOUNTER 2024-03-22 13:28 | Outpatient (CLI) | payer MEDICARE ==
[~2024-03-22] VITALS: Ht 147.3 cm; Wt 54.5 kg
[~2024-03-22 13:28] MED LIST changes: +ALBUTEROL SULFATE 2.5MG/0.5ML INH NEB SOLN INH PRN; +ALEN70TA82 PO; +ASPI81TA26 PO; +BUDE10.7 INH; +CALC500C16 PO; +CVS1CHW13 PO; +CYCL1DRO10 OU; +EPINEPHrine INJ 1 MG/ML 1ML AMP IM PRN; +GABA-1172 PO; -GABA-282 PO; +ONETAB PO; +POLY17PO18 PO; +STOO100C30 PO; +VERA240T64 PO; +VITA250C5 PO; +diphenhydrAMINE 50MG/ML VIAL IV PRN; +methylPREDNISolone 125MG 2ML VIAL IV PRN
[2024-03-22 13:50] VITALS: BP 122/60; O2SAT 98
[2024-03-22] MEDS: IRON SUCROSE 200 MG in NS 100 ML OVER 1 HR IV ONE (14:39)
[2024-03-22 15:50] VITALS: BP 137/65; O2SAT 98
== END 2024-03-22 15:50 ==
LOC: M INFU 13:28
PROVIDERS: ATTEND Physician Assistant
DX: D50.9 Iron deficiency anemia, unspecified (principal); Z88.0 Allergy status to penicillin
CPT/HCPCS: 96365; J1756

== ENCOUNTER 2024-03-29 14:05 | Outpatient (CLI) | payer MEDICARE ==
[~2024-03-29] VITALS: Ht 147.3 cm; Wt 54.5 kg
[2024-03-29 14:00] VITALS: BP 149/88; O2SAT 96
[2024-03-29] MEDS: IRON SUCROSE 200 MG in NS 100 ML OVER 1 HR IV ONE (14:43)
[2024-03-29 15:40] VITALS: BP 157/67; O2SAT 96
== END 2024-03-29 16:00 ==
LOC: M INFU 14:05
PROVIDERS: ATTEND Physician Assistant
DX: D50.9 Iron deficiency anemia, unspecified (principal); Z88.0 Allergy status to penicillin
CPT/HCPCS: 96365; J1756

== ENCOUNTER → 2024-04-08 | Outpatient (REF) | payer MEDICARE ==
[~2024-04-08] MED LIST changes: -ALBUTEROL SULFATE 2.5MG/0.5ML INH NEB SOLN INH PRN; -EPINEPHrine INJ 1 MG/ML 1ML AMP IM PRN; -diphenhydrAMINE 50MG/ML VIAL IV PRN; -methylPREDNISolone 125MG 2ML VIAL IV PRN
[2024-04-08 13:13] LABS: BASO # 0.1 10^3/uL (0.0-0.2); BASO % 0.4 % (0.0-1.0); EOS # 0.1 10^3/uL (0.0-0.5); EOS % 0.8 % (0.0-3.0); HEMATOCRIT 33.9 % (36.0-47.0); HEMOGLOBIN 10.4 g/dl (12.0-15.5); LYMPH % 8.4 % (24.0-44.0); MEAN CORPUSCULAR HEMOGLOBIN 24.8 pg (27.0-33.0); MEAN CORPUSCULAR HGB CONC 30.7 g/dl (32.0-36.5); MEAN CORPUSCULAR VOLUME 80.7 fl (80.0-96.0); MONO % 8.8 % (2.0-8.0); NEUTROPHILS # 9.4 10^3/uL (1.5-8.5); NEUTROPHILS % 81.3 % (36.0-66.0); PLATELET COUNT, AUTOMATED 513 10^3/uL (150-450); WHITE BLOOD COUNT 11.6 10^3/uL (4.0-10.0)
[2024-04-08 13:37] LABS: PERCENT SATURATION 23.9 % (13.2-45.0)
== END ==
LOC: M SFHCADAM 10:19
PROVIDERS: ATTEND Physician Assistant
DX: D50.9 Iron deficiency anemia, unspecified (principal)

== ENCOUNTER 2024-04-28 12:47 | Outpatient (CLI) | payer MEDICARE ==
[2024-04-28 14:00] VITALS: BP_SYST 149; O2SAT 98
[2024-04-28 14:04] LABS: BLOOD UREA NITROGEN 18 MG/DL (9-23); CALCIUM LEVEL 9.8 MG/DL (8.3-10.6); CARBON DIOXIDE LEVEL 29 MMOL/L (20-31); CHLORIDE LEVEL 104 MMOL/L (98-107); CREATININE FOR GFR 0.73 MG/DL (0.55-1.30); GLOMERULAR FILTRATION RATE > 60.0 (>32); GLUCOSE, FASTING 96 MG/DL (74-106); POTASSIUM SERUM 3.2 MMOL/L (3.5-5.1); SODIUM LEVEL 140 MMOL/L (136-145)
[2024-04-28] MEDS: ZOLEDRONIC ACID 5 MG in IV 1 EA IV ONE (14:24)
[2024-04-28 15:00] VITALS: BP 136/64; O2SAT 92
== END 2024-04-28 15:10 ==
LOC: M INFU 12:47
PROVIDERS: ATTEND Physician Assistant
DX: M81.0 Age-related osteoporosis without current pathological fracture (principal); Z88.0 Allergy status to penicillin
CPT/HCPCS: 36415; 80048; 96413; J3489

== ENCOUNTER → 2024-06-29 | Outpatient (REF) | payer MEDICARE ==
[2024-06-29 17:37] LABS: BASO # 0.1 10^3/uL (0.0-0.2); BASO % 1.2 % (0.0-1.0); EOS # 0.1 10^3/uL (0.0-0.5); EOS % 0.7 % (0.0-3.0); HEMATOCRIT 37.7 % (36.0-47.0); HEMOGLOBIN 12.1 g/dl (12.0-15.5); LYMPH # 1.1 10^3/uL (1.5-5.0); MEAN CORPUSCULAR HEMOGLOBIN 28.6 pg (27.0-33.0); MEAN CORPUSCULAR HGB CONC 32.1 g/dl (32.0-36.5); MEAN CORPUSCULAR VOLUME 89.1 fl (80.0-96.0); MONO # 0.9 10^3/uL (0.0-0.8); MONO % 11.6 % (2.0-8.0); NEUTROPHILS # 5.6 10^3/uL (1.5-8.5); NEUTROPHILS % 72.1 % (36.0-66.0); PLATELET COUNT, AUTOMATED 558 10^3/uL (150-450); RED BLOOD COUNT 4.23 10^6/uL (4.00-5.40); WHITE BLOOD COUNT 7.7 10^3/uL (4.0-10.0)
[2024-06-29 18:01] LABS: ALBUMIN 3.5 G/DL (3.2-5.2); ALKALINE PHOSPHATASE 40 U/L (35-104); ALT/SGPT 26 U/L (7.0-40); AST/SGOT 25 U/L (<34); BILIRUBIN,TOTAL 0.4 MG/DL (0.3-1.2); BLOOD UREA NITROGEN 17 MG/DL (9-23); CALCIUM LEVEL 9.7 MG/DL (8.3-10.6); CARBON DIOXIDE LEVEL 30 MMOL/L (20-31); CHLORIDE LEVEL 102 MMOL/L (98-107); CREATININE FOR GFR 0.71 MG/DL (0.55-1.30); GLOMERULAR FILTRATION RATE > 60.0 (>32); GLUCOSE, FASTING 76 MG/DL (74-106); IRON (FE) 70 UG/DL (50-170); PERCENT SATURATION 21.1 % (13.2-45.0); POTASSIUM SERUM 4.6 MMOL/L (3.5-5.1); SODIUM LEVEL 138 MMOL/L (136-145); TOTAL IRON BINDING CAPACITY 331 UG/DL (250-425); TOTAL PROTEIN 6.1 G/DL (5.7-8.2)
[2024-06-29 18:02] LABS: FERRITIN 27.2 NG/ML (7.3-270.7)
[2024-06-29 18:03] LABS: FOLATE > 24.0 NG/ML (>5.4); VITAMIN B12 LEVEL 881 PG/ML (211-911)
== END ==
LOC: M SFHCADAM 13:00
PROVIDERS: ATTEND Physician Assistant
DX: D50.9 Iron deficiency anemia, unspecified (principal)

== ENCOUNTER → 2024-10-25 | Outpatient (REF) | payer MEDICARE ==
[2024-10-25 14:16] LABS: BASO # 0.1 10^3/uL (0.0-0.2); BASO % 0.8 % (0.0-1.0); EOS # 0.1 10^3/uL (0.0-0.5); EOS % 1.3 % (0.0-3.0); HEMATOCRIT 42.9 % (36.0-47.0); HEMOGLOBIN 13.9 g/dl (12.0-15.5); LYMPH # 1.4 10^3/uL (1.5-5.0); MEAN CORPUSCULAR HGB CONC 32.4 g/dl (32.0-36.5); MEAN CORPUSCULAR VOLUME 95.5 fl (80.0-96.0); MONO # 1.2 10^3/uL (0.0-0.8); MONO % 11.5 % (2.0-8.0); NEUTROPHILS # 7.3 10^3/uL (1.5-8.5); PLATELET COUNT, AUTOMATED 621 10^3/uL (150-450); RED BLOOD COUNT 4.49 10^6/uL (4.00-5.40); WHITE BLOOD COUNT 10.1 10^3/uL (4.0-10.0)
[2024-10-25 14:46] LABS: FERRITIN 29.1 NG/ML (7.3-270.7)
[2024-10-25 14:47] LABS: TOTAL 25(OH) VITAMIN D 35.7 NG/ML (20.0-100.0)
[2024-10-25 14:48] LABS: VITAMIN B12 LEVEL 1064 PG/ML (211-911)
[2024-10-25 14:49] LABS: FOLATE > 24.0 NG/ML (>5.4); TOTAL IRON BINDING CAPACITY 316 UG/DL (250-425)
[2024-10-25 14:52] LABS: ALBUMIN 3.4 G/DL (3.2-5.2); ALKALINE PHOSPHATASE 45 U/L (35-104); ALT/SGPT 23 U/L (7.0-40); AST/SGOT 24 U/L (<34); BILIRUBIN,TOTAL 0.5 MG/DL (0.3-1.2); BLOOD UREA NITROGEN 18 MG/DL (9-23); CALCIUM LEVEL 9.8 MG/DL (8.3-10.6); CARBON DIOXIDE LEVEL 30 MMOL/L (20-31); CHLORIDE LEVEL 101 MMOL/L (98-107); CREATININE FOR GFR 0.81 MG/DL (0.55-1.30); GLUCOSE, FASTING 98 MG/DL (74-106); IRON (FE) 57 UG/DL (50-170); POTASSIUM SERUM 4.1 MMOL/L (3.5-5.1); SODIUM LEVEL 141 MMOL/L (136-145); TOTAL PROTEIN 6.2 G/DL (5.7-8.2)
== END ==
LOC: M SFHCADAM 09:21
PROVIDERS: ATTEND Physician Assistant
DX: Z00.00 Encounter for general adult medical examination without abnormal findings (principal); D50.9 Iron deficiency anemia, unspecified; M81.0 Age-related osteoporosis without current pathological fracture; I10 Essential (primary) hypertension; E78.5 Hyperlipidemia, unspecified; K59.09 Other constipation; K21.9 Gastro-esophageal reflux disease without esophagitis; Z28.21 Immunization not carried out because of patient refusal

== ENCOUNTER → 2025-03-02 | Outpatient (REF) | payer MEDICARE ==
[~2025-03-02] MED LIST changes: -FLAX10005 PO; +FLAX1CAP6 PO; -PRAV80TA2 PO; +PRAV80TA75 PO
[2025-03-02 13:49] LABS: ALT/SGPT 23.0 U/L (7.0-40); AST/SGOT 22.0 U/L (<34); CALCIUM LEVEL 10.0 MG/DL (8.3-10.6); CARBON DIOXIDE LEVEL 27.0 MMOL/L (20-31); CHLORIDE LEVEL 97.0 MMOL/L (98-107); CHOLESTEROL LEVEL 185.0 MG/DL (<200); CHOLESTEROL RISK RATIO 1.98 (<5); CREATININE FOR GFR 0.69 MG/DL (0.55-1.30); GLOMERULAR FILTRATION RATE 86.1 (>32); LDL CHOLESTEROL 80.8 MG/DL (<100); NON-HDL-C 92.0 MG/DL; POTASSIUM SERUM 4.6 MMOL/L (3.5-5.1); SODIUM LEVEL 130.0 MMOL/L (136-145); TRIGLYCERIDES LEVEL 56.0 MG/DL (<150)
[2025-03-02 13:50] LABS: PLATELET COUNT, AUTOMATED 790 10^3/uL (150-450)
== END ==
LOC: M SFHCADAM 09:52
PROVIDERS: ATTEND Physician Assistant
DX: E78.5 Hyperlipidemia, unspecified (principal); I10 Essential (primary) hypertension

== ENCOUNTER → 2025-03-08 | Outpatient (CLI) | payer MEDICARE | LOC: M ADAMS 11:38 | PROVIDERS: ATTEND Physician Assistant | DX: R06.09 Other forms of dyspnea (principal) ==

== ENCOUNTER → 2025-03-08 | Outpatient (REF) | payer MEDICARE ==
[2025-03-08 19:30] LABS: BASO # 0.1 10^3/uL (0.0-0.2); BASO % 0.4 % (0.0-1.0); EOS # 0.1 10^3/uL (0.0-0.5); EOS % 0.7 % (0.0-3.0); LYMPH # 1.4 10^3/uL (1.5-5.0); LYMPH % 10.8 % (24.0-44.0); MONO # 1.6 10^3/uL (0.0-0.8); MONO % 12.7 % (2.0-8.0); NEUTROPHILS # 9.4 10^3/uL (1.5-8.5); NEUTROPHILS % 74.1 % (36.0-66.0); PLATELET COUNT, AUTOMATED 853 10^3/uL (150-450)
[2025-03-08 19:34] LABS: ALT/SGPT 27.0 U/L (7.0-40); AST/SGOT 22.0 U/L (<34); CALCIUM LEVEL 10.2 MG/DL (8.3-10.6); CARBON DIOXIDE LEVEL 31.0 MMOL/L (20-31); CHLORIDE LEVEL 98.0 MMOL/L (98-107); CREATININE FOR GFR 0.74 MG/DL (0.55-1.30); GLOMERULAR FILTRATION RATE 80.2 (>32); POTASSIUM SERUM 4.4 MMOL/L (3.5-5.1); SODIUM LEVEL 136.0 MMOL/L (136-145)
[2025-03-08 19:35] LABS: FREE T4 1.72 NG/DL (0.89-1.76)
== END ==
LOC: M SFHCADAM 11:07
PROVIDERS: ATTEND Physician Assistant
DX: I10 Essential (primary) hypertension (principal); D50.9 Iron deficiency anemia, unspecified; K21.9 Gastro-esophageal reflux disease without esophagitis; E87.1 Hypo-osmolality and hyponatremia; E03.9 Hypothyroidism, unspecified; R63.4 Abnormal weight loss; R60.0 Localized edema

== ENCOUNTER → 2025-03-30 | Outpatient (REF) | payer MEDICARE ==
[2025-03-30 14:26] LABS: ALT/SGPT 17.0 U/L (7.0-40); AST/SGOT 24.0 U/L (<34); CALCIUM LEVEL 9.9 MG/DL (8.3-10.6); CARBON DIOXIDE LEVEL 30.0 MMOL/L (20-31); CHLORIDE LEVEL 101.0 MMOL/L (98-107); CREATININE FOR GFR 0.78 MG/DL (0.55-1.30); GLOMERULAR FILTRATION RATE 75.3 (>32); POTASSIUM SERUM 4.3 MMOL/L (3.5-5.1); SODIUM LEVEL 140.0 MMOL/L (136-145)
== END ==
LOC: M SFHCADAM 09:59
PROVIDERS: ATTEND Physician Assistant
DX: M81.0 Age-related osteoporosis without current pathological fracture (principal)

== ENCOUNTER → 2025-04-21 | Outpatient (REF) | payer MEDICARE ==
[~2025-04-21] MED LIST changes: +MULTTAB61 PO; +OCUV1CAP4 PO
[2025-04-21 13:47] LABS: ALT/SGPT 19.0 U/L (7.0-40); AST/SGOT 26.0 U/L (<34); CALCIUM LEVEL 9.5 MG/DL (8.3-10.6); CARBON DIOXIDE LEVEL 30.0 MMOL/L (20-31); CHLORIDE LEVEL 98.0 MMOL/L (98-107); CREATININE FOR GFR 0.72 MG/DL (0.55-1.30); GLOMERULAR FILTRATION RATE 82.9 (>32); POTASSIUM SERUM 4.3 MMOL/L (3.5-5.1); SODIUM LEVEL 135.0 MMOL/L (136-145)
== END ==
LOC: M SFHCADAM 09:51
PROVIDERS: ATTEND Physician Assistant
DX: M81.0 Age-related osteoporosis without current pathological fracture (principal)

== ENCOUNTER 2025-04-25 11:44 | Day surgery (SDC) | payer MEDICARE ==
[~2025-04-25] VITALS: Ht 147.3 cm; Wt 49.4 kg
[2025-04-25] MEDS ORDERED: LIDOCAINE 2% 100 MG/5 ML SDV (FOR ANES.) As Ordered ONE (13:05)
[2025-04-25 13:34] VITALS: BP 149/65; TEMP 97.4; O2SAT 93
== END 2025-04-25 13:42 | disposition home or self-care (01) ==
LOC: M OPP 11:44
PROVIDERS: ATTEND Internal Medicine Gastroenterology
DX: K44.9 Diaphragmatic hernia without obstruction or gangrene (principal); K31.7 Polyp of stomach and duodenum; R13.10 Dysphagia, unspecified; Z91.038 Other insect allergy status; Z91.048 Other nonmedicinal substance allergy status; Z79.899 Other long term (current) drug therapy; J45.909 Unspecified asthma, uncomplicated
CPT/HCPCS: 43251; 88305; J3010

== ENCOUNTER → 2025-05-30 | Outpatient (CLI) | payer MEDICARE | LOC: M PLAIMG 07:26 | PROVIDERS: ATTEND Physician Assistant | DX: R60.0 Localized edema (principal) ==